=== PATIENT | female | born 1945 | race Caucasian/White ===

== ENCOUNTER → 2022-04-05 | Outpatient (REF) | payer MEDICARE, SELFPAY ==
[2022-04-05 07:41] LABS: ALB/GLOB Ratio 0.8 RATIO (0.9-2.4); AST(SGOT) 17 U/L (15-37); Alanine Aminotransfer ALT/SGPT 14 U/L (13-56); Albumin, Serum 2.9 g/dL (3.2-5.0); Alkaline Phosphatase 49 U/L (45-117); Anion Gap 5 (5-15); BUN 25 mg/dL (7-18); BUN/Creat Ratio 44.6 RATIO (10-20); Calcium,Total 8.2 mg/dL (8.5-10.1); Chloride 111 mmol/L (98-107); Creatinine, Serum 0.56 mg/dL (0.55-1.02); EST Glomerular Filtration Rate 111 mL/min (>60); Est Glom Filt Rate - Afr Amer 134 mL/min (>60); Globulin 3.6 g/dL (2.2-4.2); Glucose 93 mg/dL (74-106); Potassium 3.7 mmol/L (3.5-5.1); Protein, Total 6.5 g/dL (6.4-8.2); Sodium Level 143 mmol/L (136-145)
[2022-04-05 08:50] LABS: Hematocrit 39.5 % (37-47); Hemoglobin 12.3 g/dL (12.0-15.0); Mean Corp Hgb Conc 31.1 g/dL (32-36); Mean Corpuscular Hgb 29.9 pg (27.0-32.0); Mean Corpuscular Volume 96.1 fL (81-99); Mean Platelet Vol. 11.5 fl (6.2-12.0); Platelet Count 288 K/mm3 (150-450); RBC Distribution Width CV 13.2 % (11.6-14.6); RBC Distribution Width SD 46.8 fl (35.1-43.9); Red Blood Count 4.11 M/mm3 (4.2-5.4); White Blood Count 6.2 K/mm3 (4.4-11.0)
== END ==
LOC: OLS.ACH 05:00
PROVIDERS: Visit Provider Internal Medicine
DX: I10 Essential (primary) hypertension (principal); I25.10 Atherosclerotic heart disease of native coronary artery without angina pectoris; I65.29 Occlusion and stenosis of unspecified carotid artery
CPT/HCPCS: 36415; 80053; 85027

== ENCOUNTER → 2022-05-24 | Outpatient (REF) | payer MEDICARE, SELFPAY | LOC: OLS.ACH 16:45 | PROVIDERS: Visit Provider Internal Medicine | DX: R05.9 Cough, unspecified (principal); R09.81 Nasal congestion ==

== ENCOUNTER → 2022-07-20 | Outpatient (REF) | payer MEDICARE, SELFPAY ==
[2022-07-20 08:23] LABS: Hematocrit 37.1 % (37-47); Hemoglobin 11.8 g/dL (12.0-15.0); Mean Corp Hgb Conc 31.8 g/dL (32-36); Mean Corpuscular Hgb 29.2 pg (27.0-32.0); Mean Corpuscular Volume 91.8 fL (81-99); Mean Platelet Vol. 10.4 fl (6.2-12.0); Platelet Count 322 K/mm3 (150-450); RBC Distribution Width CV 13.9 % (11.6-14.6); RBC Distribution Width SD 47.3 fl (35.1-43.9); Red Blood Count 4.04 M/mm3 (4.2-5.4)
== END ==
LOC: OLS.ACH 05:00
PROVIDERS: Visit Provider Internal Medicine
DX: I10 Essential (primary) hypertension (principal); R59.9 Enlarged lymph nodes, unspecified
CPT/HCPCS: 36415; 85027

== ENCOUNTER → 2022-08-02 | Outpatient (REF) | payer MEDICARE, SELFPAY ==
[2022-08-02 17:00] LABS: Bacteria 0 SEEN /hpf (None Seen); Mucous, Urine 0 SEEN /hpf (<or=2+); Red Blood Cells-Urine 0 SEEN /hpf (0-5); Squamous Epithelial Cells - UA 0 SEEN /hpf (5-10)
[2022-08-02 17:15] LABS: Color, Urine Yellow (Yellow); Glucose, Dipstick Normal (Normal); Ketone-Dipstick Negative (Negative); Leukocyte Esterase-Dipstick 25 /ul (Negative); Nitrite-Dipstick Negative (Negative); Occult Blood-Urine Negative /ul (Negative); Protein-Dipstick Negative (Negative); Specific Gravity, Urine 1.015 (1.002-1.030); Urine Bilirubin Dipstick Negative (Negative); Urine Clarity Clear (Clear); Urine Urobilinogen Normal (Normal); Urine pH 6.5 (5.0 - 8.0)
[2022-08-02 17:27] LABS: White Blood Cells 0-5 SEEN /hpf (0-5)
== END ==
LOC: OLS.ACH 16:00
PROVIDERS: Referring Provider Internal Medicine; Visit Provider Internal Medicine
DX: R10.30 Lower abdominal pain, unspecified (principal)
CPT/HCPCS: 81001; 87086; 87088

== ENCOUNTER → 2022-08-05 | Outpatient (REF) | payer MEDICARE, SELFPAY ==
[2022-08-05 08:22] LABS: Hematocrit 34.9 % (37-47); Hemoglobin 10.9 g/dL (12.0-15.0); Mean Corp Hgb Conc 31.2 g/dL (32-36); Mean Corpuscular Hgb 29.4 pg (27.0-32.0); Mean Corpuscular Volume 94.1 fL (81-99); Mean Platelet Vol. 10.7 fl (6.2-12.0); Platelet Count 275 K/mm3 (150-450); RBC Distribution Width CV 14.3 % (11.6-14.6); Red Blood Count 3.71 M/mm3 (4.2-5.4); White Blood Count 5.6 K/mm3 (4.4-11.0)
[2022-08-05 08:50] LABS: ALB/GLOB Ratio 0.7 RATIO (0.9-2.4); AST(SGOT) 30 U/L (15-37); Alanine Aminotransfer ALT/SGPT 18 U/L (13-56); Albumin, Serum 2.8 g/dL (3.2-5.0); Alkaline Phosphatase 46 U/L (45-117); Anion Gap 7 (5-15); BUN 18 mg/dL (7-18); BUN/Creat Ratio 38.1 RATIO (10-20); Calcium,Total 8.4 mg/dL (8.5-10.1); Chloride 113 mmol/L (98-107); Creatinine, Serum 0.47 mg/dL (0.55-1.02); EST Glomerular Filtration Rate 135 mL/min (>60); Est Glom Filt Rate - Afr Amer 163 mL/min (>60); Globulin 3.9 g/dL (2.2-4.2); Glucose 98 mg/dL (74-106); Potassium 3.5 mmol/L (3.5-5.1); Protein, Total 6.7 g/dL (6.4-8.2); Sodium Level 143 mmol/L (136-145)
== END ==
LOC: OLS.ACH 05:00
PROVIDERS: Visit Provider Internal Medicine
DX: I25.10 Atherosclerotic heart disease of native coronary artery without angina pectoris (principal)
CPT/HCPCS: 36415; 80053; 85027

== ENCOUNTER → 2022-12-15 | Outpatient (REF) | payer MEDICARE, SELFPAY ==
[2022-12-16 09:10] LABS: Red Blood Cells-Urine 0 SEEN /hpf (0-5)
[2022-12-16 09:42] LABS: Color, Urine Yellow (Yellow); Glucose, Dipstick Normal (Normal); Ketone-Dipstick Negative (Negative); Leukocyte Esterase-Dipstick 500 /ul (Negative); Nitrite-Dipstick Negative (Negative); Occult Blood-Urine 10 /ul (Negative); Protein-Dipstick 15 mg/dl (Negative); Urine Bilirubin Dipstick Negative (Negative); Urine Clarity Sl. Cloudy (Clear); Urine Urobilinogen Normal (Normal)
[2022-12-16 09:52] LABS: Bacteria RARE /hpf (None Seen); Calcium Oxalate Crystals Ur RARE /hpf (<or=2+); Mucous, Urine 2+ /hpf (<or=2+); Squamous Epithelial Cells - UA 0-5 SEEN /hpf (5-10); White Blood Cells 5-10 SEEN /hpf (0-5)
== END ==
LOC: OLS.ACH 09:10
PROVIDERS: Visit Provider Internal Medicine
DX: F01.53 Vascular dementia, unspecified severity, with mood disturbance (principal); Z91.81 History of falling; Z79.899 Other long term (current) drug therapy
CPT/HCPCS: 81001; 87086

== ENCOUNTER → 2023-01-17 | Outpatient (REF) | payer MEDICARE, SELFPAY ==
[2023-01-17 07:58] LABS: Hemoglobin 12.3 g/dL (12.0-15.0); Mean Corp Hgb Conc 32.4 g/dL (32-36); Mean Corpuscular Hgb 30.3 pg (27.0-32.0); Mean Corpuscular Volume 93.6 fL (81-99); Mean Platelet Vol. 10.5 fl (6.2-12.0); Platelet Count 301 K/mm3 (150-450); RBC Distribution Width CV 14.2 % (11.6-14.6); RBC Distribution Width SD 49.3 fl (35.1-43.9); Red Blood Count 4.06 M/mm3 (4.2-5.4); White Blood Count 6.2 K/mm3 (4.4-11.0)
[2023-01-17 08:22] LABS: ALB/GLOB Ratio 0.8 RATIO (0.9-2.4); AST(SGOT) 33 U/L (15-37); Alanine Aminotransfer ALT/SGPT 23 U/L (13-56); Alkaline Phosphatase 56 U/L (45-117); Anion Gap 7 (5-15); BUN 23 mg/dL (7-18); BUN/Creat Ratio 36.7 RATIO (10-20); Calcium,Total 8.4 mg/dL (8.5-10.1); Chloride 108 mmol/L (98-107); Creatinine, Serum 0.63 mg/dL (0.55-1.02); EST Glomerular Filtration Rate 98 mL/min (>60); Est Glom Filt Rate - Afr Amer 118 mL/min (>60); Glucose 98 mg/dL (74-106); Potassium 3.7 mmol/L (3.5-5.1); Sodium Level 141 mmol/L (136-145)
== END ==
LOC: OLS.ACH 05:00
PROVIDERS: Visit Provider Internal Medicine
DX: M25.552 Pain in left hip (principal)
CPT/HCPCS: 36415; 80053; 85027

== ENCOUNTER → 2023-02-03 | Outpatient (REF) | payer MEDICARE, SELFPAY ==
[2023-02-03 08:18] LABS: Hematocrit 37.4 % (37-47); Hemoglobin 11.6 g/dL (12.0-15.0); Mean Corpuscular Hgb 29.1 pg (27.0-32.0); Mean Platelet Vol. 10.8 fl (6.2-12.0); Platelet Count 372 K/mm3 (150-450); RBC Distribution Width CV 14.1 % (11.6-14.6); RBC Distribution Width SD 48.6 fl (35.1-43.9); Red Blood Count 3.98 M/mm3 (4.2-5.4)
[2023-02-03 09:11] LABS: ALB/GLOB Ratio 0.7 RATIO (0.9-2.4); AST(SGOT) 27 U/L (15-37); Alanine Aminotransfer ALT/SGPT 18 U/L (13-56); Albumin, Serum 2.7 g/dL (3.2-5.0); Alkaline Phosphatase 52 U/L (45-117); Anion Gap 4 (5-15); BUN 15 mg/dL (7-18); BUN/Creat Ratio 26.3 RATIO (10-20); Calcium,Total 8.5 mg/dL (8.5-10.1); Chloride 112 mmol/L (98-107); Creatinine, Serum 0.57 mg/dL (0.55-1.02); EST Glomerular Filtration Rate 109 mL/min (>60); Est Glom Filt Rate - Afr Amer 131 mL/min (>60); Globulin 3.9 g/dL (2.2-4.2); Glucose 89 mg/dL (74-106); Potassium 3.7 mmol/L (3.5-5.1); Protein, Total 6.6 g/dL (6.4-8.2); Sodium Level 142 mmol/L (136-145)
== END ==
LOC: OLS.ACH 05:00
PROVIDERS: Visit Provider Internal Medicine
DX: U07.1 COVID-19 (principal)
CPT/HCPCS: 36415; 80053; 85027

== ENCOUNTER → 2023-03-07 | Outpatient (REF) | payer MEDICARE, SELFPAY ==
--- OUTSIDE RECORDS SUMMARY | 2023-03-07 05:00 | XMS RPT_ITS | CCD ---
Author Name Unknown Address [address] [place] [address] Organization [facility] Care Team Providers Care Satellite Dish Technician Name Role Phone Kahlil Chapin Unavailable Unavailable KromalicJordy Unavailable Unavailable KrJordy serrano Unavailable Unavailable Jordy Palmer Referring Unavailable Jordy Palmer Primary Care Unavailable JORDY PALMER Referring Unavailab le KromalicJordy Unavailable Unavailable Ajith Sy Unavailable Unavaila ble Jordy Palmer Unavailable Unavailable Amado Johnson Unavailable Unavailable Jordy Palmer Unavailable Unavailable Amado Johnson Unavailable Unavailable Jordy Palmer Unavailable Unavailable Unavailable Krzach, Dr. Jordy Becker Referring Unava ilable Kromalic, Dr. Jordy Becker Attending Unava ilable Kromalic, Dr. Jordy Becker Primary Care Unava ilable Kromalic, Dr. Jordy Becker Primary Care Unava ilable Kromalic, Dr. Jordy Becker Referring Unava ilable Kromalic, Dr. Jordy Becker Attending Unava ilable BALBIR MORALES Referring Unavailable NESHEIM, WON Attending Unavailable JACKY ROSENBERG Attending Unavailable JACKY ROSENBERG Admitting Unavailable SCHECHRISTINE SALVADOR Consulting Unavailable TORRES KEEN Consulting Unavailable NESHEIM, WON Referring Unavailable BALBIR MORALES Referring Unavailable Allergies Allergy Classification Reported Allergen(s) Allergy Type Date of Onset Reaction(s) Facility (20 sources) fentaNYL; Translations: [FENTANYL] Drug Allergy 7 [facility] Repository (2 sources) Iodine; Translations: [IODINE] Drug Allergy 7 [facility] Repository (2 sources) Morphine; Translations: [MORPHINE] Drug Allergy 7 [facility] Repository (2 sources) Nitrofurantoin; Translations: [NITROFURANTOIN] Drug Allergy 7 [facility] Repository (20 sources) Penicillins; Translations: [PENICILLINS] Propensity to adverse reactions (disorder) 7 Hives [facility] Repository (2 sources) NITROIMIDAZOLES; Translations: [NITROIMIDAZOLES] Propensity to adverse reactions (disorder) 7 [facility] Repository (18 sources) Ciprofloxacin; Translations: [Cipro TABS] Drug Allergy Rash [facility] Work Phone: (18 sources) metroNIDAZOLE; Translations: [metronidazole] Drug Allergy [facility] Work Phone: (18 sources) Nitrofurantoin; Translations: [Macrodantin CAPS] Drug Allergy [facility] Work Phone: (18 sources) Sulfonamides (Antibiotic); Translations: [Sulfa Drugs] Allergy to drug (finding) Rash [facility] Work Phone: (18 sources) Omnipaque SOLN; Translations: [Omnipaque SOLN] Allergy to drug (finding) Other [facility] Work Phone: Medications Completed/Discontinued Medications Medication Drug Class(es) Dates Sig (Normalized) Sig (Original) ascorbic acid 60 mg / beta carotene 5000 unt / copper sulfate 40 mg / dl-alpha tocopheryl acetate 30 unt / sodium selenite 0.04 mg / zinc oxide 40 mg oral tablet (4 sources) Vitamin C take 1 tablet by mouth once daily Centrum Silver Oral Tablet TAKE 1 TABLET DAILY. Refills: 0 Active aspirin 81 mg oral tablet (18 sources) Platelet Aggregation Inhibitor, Nonsteroidal Anti-inflammatory Drug Aspirin 81 MG TABS TAKE 1 TABLET DAILY. Quantity: 0 Refills: 0 Ordered: 03-May-2019 DO Active atenolol 25 mg oral tablet (18 sources) beta-Adrenergic Kate Start: 05-10-2012 take 1 tablet by mouth once daily Atenolol 25 MG Oral Tablet TAKE 1 TABLET BY MOUTH EVERY DAY Quantity: 90 Refills: 3 Ordered: 28-May-2021 Jordy Palmer DO Start : 10-May-2012 Active Centrum Silver Oral Tablet (1 source) take 1 tablet by mouth once daily Centrum Silver Oral Tablet TAKE 1 TABLET DAILY. Refills: 0 Active Centrum Silver Oral Tablet (5 sources) End: 08-17-2021 take 1 tablet by mouth once daily Centrum Silver Oral Tablet TAKE 1 TABLET DAILY. Quantity: 0 Refills: 0 Ordered: 17-Aug-2021 DO End : 17-Aug-2021 Complete Problems Active Problems Problem Classification Problem Date Documented Da te Episodic/Chronic Abdominal hernia (18 sources) Unspecified abdominal hernia without obstruction or gangrene; Translations: [Hernia] Episodic Abdominal pain (20 sources) Left lower quadrant pain; Translations: [Right flank pain] Episodic Acquired foot deformities (18 sources) Bunion; Translations: [Bunion] Episodic Acute bronchitis (18 sources) Acute bronchitis; Translations: [Acute bronchitis] Episodic Past or Other Problems Problem Classification Problem Date Documented Date Episodic/Chronic Diverticulosis and diverticulitis (5 sources) Diverticulitis of intestine; Translations: [Diverticulitis of intestine, part unspecified, without perforation or abscess without bleeding] Residual codes; unclassified (3 sources) Requires vaccination; Translations: [Need for vaccination] Unclassified (1 source) screening mamm Onset: 06-06-2018 Unclassified (15 sources) Patient encounter status; Translations: [Encounter for screening mammogram for breast cancer] Unclassified (5 sources) History of operative procedure on foot; Translations: [History of History of bunionectomy of left great toe] Unclassified (2 sources) Vaccination needed; Translations: [Need for vaccination] Unclassified (1 source) Vascular dementia, unspecified severity, with agitation; Translations: [Vascular dementia, unspecified severity, with agitation] Onset: 03-08-2022 NEGATED: Highlighted row has not occurred!Residual codes; unclassified (20 sources) Disease Episodic Results Test Name Value Interpretation Reference Range Facil ity Vital Signs Date Time Vital Sign Value Performing Clinician Faci lity 12-17-2021 15:42-0400 Body height 153.67 cm Jordy Palmer Work Phone: [facility] Work Phone: 12-17-2021 15:42-0400 Body mass index (BMI) [Ratio] 24.2 kg/m2 Jordy Palmer Work Phone: [facility] Work Phone: 12-17-2021 15:42-0400 Body surface area Derived from formula 1.54 m2 Jordy Palmer Work Phone: [facility] Work Phone: 12-17-2021 15:42-0400 Body temperature 97.3 [degF] Jordy Palmer Work Phone: [facility] Work Phone: 12-17-2021 15:42-0400 Body weight 57.15 kg Jordy Palmer Work Phone: [facility] Work Phone: 12-17-2021 15:42-0400 Diastolic blood pressure 80 mm[Hg] Jordy Palmre Work Phone: [facility] Work Phone: 12-17-2021 15:42-0400 Heart rate 60 /min Jordy Palmer Work Phone: [facility] Work Phone: 12-17-2021 15:42-0400 SaO2% (BldA) [Mass fraction] 97 % Jordy Palmer Work Phone: [facility] Work Phone: 12-17-2021 15:42-0400 Systolic blood pressure 138 mm[Hg] Jordy Palmer Work Phone: [facility] Work Phone: 08-17-2021 11:43-0400 Diastolic blood pressure 82 mm[Hg] Jordy Palmer Work Phone: [facility] Work Phone: 08-17-2021 11:43-0400 Systolic blood pressure 135 mm[Hg] Jordy Palmer Work Phone: [facility] Work Phone: 08-17-2021 10:56-0400 Body height 153.67 cm Jordy Palmer Work Phone: [facility] Work Phone: 08-17-2021 10:56-0400 Body mass index (BMI) [Ratio] 23.05 kg/m2 Jordy Palmer Work Phone: [facility] Work Phone: 08-17-2021 10:56-0400 Body surface area Derived from formula 1.51 m2 Jordy Palmer Work Phone: [facility] Work Phone: 08-17-2021 10:56-0400 Body temperature 97.3 [degF] Jordy Palmer Work Phone: [facility] Work Phone: 08-17-2021 10:56-0400 Body weight 54.43 kg Jordy Palmer Work Phone: [facility] Work Phone: 08-17-2021 10:56-0400 Diastolic blood pressure 80 mm[Hg] Jordy Palmer Work Phone: [facility] Work Phone: 08-17-2021 10:56-0400 Heart rate 60 /min Jordy Mendozaomalic Work Phone: [facility] Work Phone: 08-17-2021 10:56-0400 SaO2% (BldA) [Mass fraction] 98 % Jordy Mendozaomalic Work Phone: [facility] Work Phone: 08-17-2021 10:56-0400 Systolic blood pressure 124 mm[Hg] Jordy Mendozaomalic Work Phone: [facility] Work Phone: 07-27-2019 11:32-0400 BMI (Body Mass Index) 27.59 kg/m2 Jordy Mendozaomalic [facility] Work Phone: 07-27-2019 11:32-0400 Body Temperature 98.2 [degF] Jordy Palmer [facility] Work Phone: 07-27-2019 11:32-0400 Body weight 66.23 kg Jordy Mendozaomalic [facility] Work Phone: 07-27-2019 11:32-0400 BP Diastolic 76 mm[Hg] Jordy Mendozaomalic [facility] Work Phone: 07-27-2019 11:32-0400 BP Systolic 148 mm[Hg] Jordy Mendozaomalic [facility] Work Phone: 07-27-2019 11:32-0400 BSA (Body Surface Area) 1.65 m2 Jordy Mendozaomalic [facility] Work Phone: 07-27-2019 11:32-0400 Pulse (Heart Rate) 60 /min Jordy Dunhamanushka [facility] Work Phone: Encounters Encounter Date Encounter Type Care Provider Facility Start: 03-08-2022 End: 03-09-2022 Emergency department patient visit WON REINA [facility] Start: 03-03-2022 End: 03-04-2022 Emergency department patient visit BALBIR MORALES [facility] Start: 03-03-2022 End: 03-05-2022 ambulatory JACKY ROSENBERG [facility] Start: 01-11-2022 Rx Renewal Jordy askew Work Phone: [facility] Work Phone: Start: 12-17-2021 Office outpatient vi sit 25 minutes Jordy Palmer Work Phone: [facility] Work Phone: Start: 12-17-2021 Patient encounter procedure Jordy Palmer Work Phone: [facility] Work Phone: Start: 12-17-[address] Jordy Palmer Facility:[id number] Start: 10-19-2021 Rx Renewal Jordy askew Work Phone: -[facility] Work Phone: Start: 10-05-2021 Chart Update Jordy askew Work Phone: [facility] Work Phone: Start: 10-02-2021 Chart Update Jordy askew Work Phone: [facility] Work Phone: Start: 09-11-2021 Rx Renewal Jordy askew Work Phone: [facility] Work Phone: Start: 08-17-2021 Office outpatient vi sit 25 minutes Jordy Palmer Work Phone: [facility] Work Phone: Start: 08-17-[address] Jordy Palmer Facility:[id number] Start: 05-28-2021 Rx Renewal Jordy Askew Kallie askew Work Phone: [facility] Work Phone: Start: 05-23-2021 Rx Renewal Jordy Askew Kallie askew Work Phone: [facility] Work Phone: Start: 04-06-2021 Rx Renewal Jordy Askew Kallie askew Work Phone: [facility] Work Phone: Start: 02-24-2021 AUDIT Jordy askew Work Phone: [facility] Work Phone: Start: 05-06-2020 Patient encounter procedure Jordy Palmer [facility] Work Phone: Start: 07-27-2019 Patient encounter procedure Jordy Mendozaomalic [facility] Work Phone: Start: 05-03-2019 Patient encounter procedure Jordy Mendozaomalic [facility] Work Phone: Start: 03-26-2019 Patient encounter procedure Jordy Mendozaomalic [facility] Work Phone: Start: 12-15-2018 Patient encounter procedure Jordy Mendozaomalic [facility] Work Phone: Start: 10-17-2018 Patient encounter procedure Jordy Mendozaomalic [facility] Work Phone: Start: 07-31-2018 Patient encounter procedure Jordy Kromalic [facility] Work Phone: Start: 07-17-2018 [facility] Work [facility]: Start: 06-06-2018 End: 06-06-2018 Patient encounter procedure Jordy Palmer Facility:[facility] Start: 02-06-2018 Patient encounter [facility] Work Phone: Start: 09-21-2016 Ambulatory Kahlil Chapin [facility] Patient encounter status Jordy Askew Shannan [facility] Work Phone: Procedures Date Procedure Procedure Detail Performing Clinician Appendectomy Jordy Palmer Cholecystectomy Jordy askew History of Foot Surgery Left Jordy Palmer History of Gallbladder Surgery Jordy Palmer History of Partial Colectomy - Sigmoid Jordy Palmer History of Simple Bu nion Exostectomy (Silver Procedure) Jordy Palmer Total abdominal hyst erectomy with bilateral salpingo-oophorectomy Jordy Palmer Plan of Treatment Date Care Activity Detail Author Start: 03-19-2021 FUV, Provider: Jordy Palmer, Status: Pen, Time: 9:40 AM FUV, Provider: Jordy Palmer, Status: Pen, Time: 9:40 AM [facility] Work Phone: Immunizations Immunization Date Immunization Notes Care Provider Fa cary 08-02-2020 Moderna COVID-19 Vac cine 100 MCG/0.5ML Intramuscular Suspension Jordy Palmer Work Phone: [facility] Work Phone: 07-25-2020 Moderna COVID-19 Vac cine 100 MCG/0.5ML Intramuscular Suspension Jordy Palmer Work Phone: [facility] Work Phone: 07-04-2020 Moderna COVID-19 Vac cine 100 MCG/0.5ML Intramuscular Suspension Jordy Mendozazach Work Phone: [facility] Work Phone: 12-25-2019 Fluad Quadrivalent 0 .5 ML Intramuscular Prefilled Syringe Jordy Mendozazach Work Phone: [facility] Work Phone: 12-15-2018 influenza, injectabl e, quadrivalent, preservative free; Translations: [Fluarix Quadrivalent 0.5 ML Intramuscular Suspension Prefilled Syringe] Jordy Palmer [facility] Work Phone: Payers Date Payer Category Payer Unknown [id number] 1945 Unknown [id number] 1945 Unknown [id number] 1945 Unknown [id number] Unknown Social History Date Type Detail Facility Retired From Work Retired From Work [facility] Work Phone: NEGATED: Highlighted row - - [facility] Work Phone: Functional Status Date Assessment Result Facility NEGATED: Highlighted row Functional performance Functional status health issues are not documented Disease [facility] Work Phone: Mental Status Date Assessment Result Facility NEGATED: Highlighted row Cognitive function [Interpretation] Cognitive status health issues are not documented Disease [facility] Work Phone: Discharge summary note 03-05-2022 Note Date & Type Note Facility 03-05-2022 Note Discharge Summary Sabina Quarles : 1945 ADMIT DATE: 03/03/2022 DISCHARGE DATE: 03/05/2022 PRIMARY CARE PHYSICIAN: Jordy Palmer VISIT STATUS: Observation CODE STATUS: Full Code DISCHARGE DIAGNOSES: Principal Problem: Unable to ambulate Active Problems: Physical debility HLD/HTN/CAD Left Hip Pointer HOSPITAL COURSE: Patient presented for acute fall striking left hip, patient with significant pain/immobility, determined not to be fractured, patient with continued pain 2/2 hip pointer uanble to safely care for self at home and required placement to SNF for Rehab Discharge to [facility] for rehab in improved/stable condition SIGNIFICANT DIAGNOSTIC STUDIES: CT head w/o iv contrast no acute process XR chest no acute process CT pelvis w/o IV contrast, no acute fracture CT cervical spine no acute process or compression fractur CONSULTANTS: PT/OT, Psychiatry, CM/SW RECOMMENDED NEXT STEPS: Discharge to SNF for physical rehabilitation follow up with home pt, and guided strength training to reduce fall risk. DISCHARGE MEDICATIONS: Medication List You have not been prescribed any medications. DIET: Adult diet Regular ACTIVITY: No heavy lifting. COMPLEXITY OF FOLLOW UP: [x] Moderate Complexity: follow up within 7-14 calendar days (65594) [] Severe Complexity: follow up within 7 calendar days (75030) FOLLOW UP TESTING, PENDING RESULTS OR REFERRALS AT TRANSITIONAL CARE VISIT: [] Yes [x] No PENDING STUDIES: none DISPOSITION: Skilled Facility FACILITY/HOME CARE AGENCY NAME: [place] Follow up with No follow-up provider specified. PCP INSTRUCTIONS TO MA/SW: Please call patient on day after discharge (must document patient contacted within 2 business days of discharge). FOLLOW UP QUESTIONS FOR MA/SW: 1. Did you get medications filled and taking them as instructed from discharge? 2. Are you following your discharge instructions from your hospital stay? 3. Please confirm patient is scheduled for a follow up appointment within the above time frame. DISCHARGE TIME: > 30 minutes SIGNED: Jacky Rosenberg MD 03/05/2022, 12:43 PM [facility] Clinical Note 03-05-2022 Note Date & Type Note Facility 03-05-2022 Note Hospitalist Progress Note 03/05/2022 Subjective: Admit Date: 03/03/2022 PCP: Jordy Palmer DO Room#: 02/28 Interval History: No overnight issues. Chest pain improved. Patient evaluated by PT/OT plan for placement to [facility] SNF, pending final approval from facility, referral sent, insurance waived auth, family and patient amenable Left hip pain tolerable persistent Denies, sob, abdominal pain, nausea, vomiting, diarrhea, constipation, fevers, or chills. Adult diet Regular 24HR INTAKE/OUTPUT: No intake or output data in the 24 hours ending 03/05/22442 Past Medical History: Past Medical History: Diagnosis Date CAD (coronary artery disease) Carotid artery stenosis Mild B/L 2012 Doppler Hyperlipidemia Hypertension Presence of stent in coronary artery 2000-> BMS to LAD, 2006-> BMS to RCA LABS: CBC: Recent Labs 03/03/22 1740 WBC 12.4* RBC 5.14 HGB 15.0 HCT 45.8 MCV 89.2 RDW 13.2 PLT 392 BMP: Recent Labs 03/03/22 1740 NA 145 K 3.8 CL 108* CO2 22 BUN 41* CREATININE 0.46* GLUCOSE 136* CALCIUM 9.4 ANIONGAP 15* LIVER PROFILE:No results for input(s): AST, ALT, BILITOT, ALKPHOS, PROT in the last 72 hours. No lab exists for component: LABALBU PT/INR: No results for input(s): PROTIME, INR in the last 72 hours. CARDIAC ENZYMES: Recent Labs 03/03/22 1740 TROPONINI 0.027 Procalcitonin: No results found for: PROCAL COVID-19 PCR: No results for input(s): COVID19 in the last 72 hours. Objective: Vitals: BP (!) 154/73 Pulse 67 Temp 37 ?C (98.6 ?F) (Oral) Resp 18 Ht 5' 2 (1.575 m) Wt 125 lb (56.7 kg) SpO2 96% BMI 22.86 kg/m? Pulse Ox: SpO2 Av.1 % Min: 95 % Max: 100 % Supplemental O2: General appearance: No apparent distress, appears stated age, mild sedation, reports continued but slowly improving pain to left hip, tenderness over left upper leg HEENT: Normal cephalic, atraumatic without obvious deformity. Pupils equal, round, and reactive to light. Extra ocular muscles intact. Conjunctivae/corneas clear. Neck: Supple, with full range of motion. No jugular venous distention. Trachea midline. No lymphadenopathy. Respiratory: Normal respiratory effort. Clear to auscultation, bilaterally without Rales/Wheezes/Rhonchi. Cardiovascular: Regular rate and rhythm with normal S1/S2 without murmurs, rubs or gallops. Abdomen: Soft, non-tender, non-distended with normal bowel sounds. No rebound or guarding. Musculoskeletal: No clubbing, cyanosis or edema bilaterally. Full range of motion without deformity, +2 peripheral pulses in all extremities. Skin: Skin color, texture, turgor normal. No rashes or lesions. Neurologic: Neurovascularly intact without any focal sensory/motor deficits. Cranial nerves: II-XII intact, grossly non-focal. Medications: Current Facility-Administered Medications: acetaminophen (Tylenol) tablet 650 mg, 650 mg, Oral, q6h PRN OR acetaminophen (Tylenol) suppository 650 mg, 650 mg, Rectal, q6h PRN, Alan Villegas MD amLODIPine (Norvasc) tablet 5 mg, 5 mg, Oral, Daily, Jacky Rosenberg MD, 5 mg at 03/04/22 1309 aspirin EC tablet 81 mg, 81 mg, Oral, Daily, Alan Villegas MD, 81 mg at 03/04/22 1006 atenolol (Tenormin) tablet 25 mg, 25 mg, Oral, Daily, Alan Villegas MD, 25 mg at 03/04/22 1007 enoxaparin (Lovenox) syringe 40 mg, 40 mg, SubCUTAneous, Daily, Alan Villegas MD, 40 mg at 03/04/22 1007 ondansetron ODT (Zofran-ODT) disintegrating tablet 4 mg, 4 mg, Oral, q8h PRN OR ondansetron (Zofran) injection 4 mg, 4 mg, IntraVENous, q6h PRN, Alan Villegas MD oxyCODONE (Roxicodone) immediate release tablet 5 mg, 5 mg, Oral, q6h PRN, Alan Villegas MD, 5 mg at 03/04/22 1309 polyethylene glycol (PEG) 3350 (Miralax) packet 17 g, 17 g, Oral, Daily PRN, Alan Villegas MD sennosides (Senokot) tablet 8.6 mg, 1 tablet, Oral, Nightly, Alan Villegas MD No current outpatient medications on file. Assessment Geriatric fall w/o hip fracture Physical debility 2/2 hip blunt force trauma Diminishing ADL and failure to thrive following passing of of 48 years Reactive depression/Adjustment Disorder Chronic Medical Problems as above Plan Home meds as ordered -PT/OT eval supportive of placement today Case management consulted -Referral sent and accepted to 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 Jacky Rosenberg MD Division of Hospitalist Medicine Inpatient Medical Services/[facility] Clinical Note 03-04-2022 Note Date & Type Note Facility 03-04-2022 Note S/W, patient ED bedd ed Referral sent to [facility] via [facility]. I did also call admissions at [facility], they did confirm patient Son has been in contact for an admission to their facility. Therapy Evals are pending. Patient is [employer], insurance is waiving auth but will need therapy input for acceptance. Once evals complete I will send to [facility] for review. [facility] Clinical Note 03-04-2022 Note Date & Type Note Facility 03-04-2022 Note Hospitalist Progress Note 03/04/2022 Subjective: Admit Date: 03/03/2022 PCP: Jordy Palmer DO Room#: 02/28 Interval History: No overnight issues. Chest pain improved. Patient notes continued left hip pain and inability to ambulate independently, Patient has reactive depression due to passing last year of and recent passing of close friend. Diminishing ADL and ability to care for self, has been discussing with son transition to a facility or assisted living. PT/OT consult, case management for placement coordination/discharge planning Denies, sob, abdominal pain, nausea, vomiting, diarrhea, constipation, fevers, or chills. Adult diet Regular 24HR INTAKE/OUTPUT: No intake or output data in the 24 hours ending 03/04/22 0720 Past Medical History: Past Medical History: Diagnosis Date CAD (coronary artery disease) Carotid artery stenosis Mild B/L 2012 Doppler Hyperlipidemia Hypertension Presence of stent in coronary artery 2000-> BMS to LAD, 2006-> BMS to RCA LABS: CBC: Recent Labs 03/03/22 1740 WBC 12.4* RBC 5.14 HGB 15.0 HCT 45.8 MCV 89.2 RDW 13.2 PLT 392 BMP: Recent Labs 03/03/22 1740 NA 145 K 3.8 CL 108* CO2 22 BUN 41* CREATININE 0.46* GLUCOSE 136* CALCIUM 9.4 ANIONGAP 15* LIVER PROFILE:No results for input(s): AST, ALT, BILITOT, ALKPHOS, PROT in the last 72 hours. No lab exists for component: LABALBU PT/INR: No results for input(s): PROTIME, INR in the last 72 hours. CARDIAC ENZYMES: Recent Labs 03/03/22 1740 TROPONINI 0.027 Procalcitonin: No results found for: PROCAL COVID-19 PCR: No results for input(s): COVID19 in the last 72 hours. Objective: Vitals: BP (!) 164/72 (BP Location: Right arm, Patient Position: Lying) Pulse 81 Temp 37 ?C (98.6 ?F) (Oral) Resp 17 Ht 5' 2 (1.575 m) Wt 125 lb (56.7 kg) SpO2 99% BMI 22.86 kg/m? Pulse Ox: SpO2 Av % Min: 97 % Max: 99 % Supplemental O2: General appearance: No apparent distress, appears stated age, mild sedation, reports continued but slowly improving pain to left hip, tenderness over left upper leg HEENT: Normal cephalic, atraumatic without obvious deformity. Pupils equal, round, and reactive to light. Extra ocular muscles intact. Conjunctivae/corneas clear. Neck: Supple, with full range of motion. No jugular venous distention. Trachea midline. No lymphadenopathy. Respiratory: Normal respiratory effort. Clear to auscultation, bilaterally without Rales/Wheezes/Rhonchi. Cardiovascular: Regular rate and rhythm with normal S1/S2 without murmurs, rubs or gallops. Abdomen: Soft, non-tender, non-distended with normal bowel sounds. No rebound or guarding. Musculoskeletal: No clubbing, cyanosis or edema bilaterally. Full range of motion without deformity, +2 peripheral pulses in all extremities. Skin: Skin color, texture, turgor normal. No rashes or lesions. Neurologic: Neurovascularly intact without any focal sensory/motor deficits. Cranial nerves: II-XII intact, grossly non-focal. Medications: Current Facility-Administered Medications: acetaminophen (Tylenol) tablet 650 mg, 650 mg, Oral, q6h PRN OR acetaminophen (Tylenol) suppository 650 mg, 650 mg, Rectal, q6h PRN, Alan Villegas MD aspirin EC tablet 81 mg, 81 mg, Oral, Daily, Alan Villegas MD atenolol (Tenormin) tablet 25 mg, 25 mg, Oral, Daily, Alan Villegas MD enoxaparin (Lovenox) syringe 40 mg, 40 mg, SubCUTAneous, Daily, Alan Villegas MD ondansetron ODT (Zofran-ODT) disintegrating tablet 4 mg, 4 mg, Oral, q8h PRN OR ondansetron (Zofran) injection 4 mg, 4 mg, IntraVENous, q6h PRN, Alan Villegas MD oxyCODONE (Roxicodone) immediate release tablet 5 mg, 5 mg, Oral, q6h PRN, Alan Villegas MD polyethylene glycol (PEG) 3350 (Miralax) packet 17 g, 17 g, Oral, Daily PRN, Alan Villegas MD No current outpatient medications on file. Assessment Geriatric fall w/o hip fracture Physical debility 2/2 hip blunt force trauma Diminishing ADL and failure to thrive following passing of of 48 years Reactive depression/Adjustment Disorder Chronic Medical Problems as above Plan -PT/OT eval for home therapy vs placement today Case management consulted -Referral sent and accepted to 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 Jacky Rosenberg MD Division of Hospitalist Medicine Inpatient Medical Services/[facility] Clinical Note 03-04-2022 Note Date & Type Note Facility 03-04-2022 Note [facility] : 1945 AGE 76 y.o. YEARS Note Date 03/03/2022 Primary Care Physician:Jordy Palmer DO Current Providers as of 03/03/2022 PCP: Jordy Palmer DO Referring Provider: not found, starting on TueMar 03, 2022 12:00 AM Admitting Provider: Alan Villegas MD, (Active) Attending Provider: Balbir Morales MD, starting on TueMar 03, 2022 5:19 PM (Active) Attending Provider: Alan Villegas MD, starting on TueMar 03, 2022 7:51 PM (Active) Perinatal Educator RES: Redd Mendoza MD, starting on TueMar 03, 2022 5:17 PM (Active) Registered Nurse: Eveline Irby RN, starting on TueMar 03, 2022 7:12 PM, ending on TueMar 03, 2022 10:34 PM (Inactive) Registered Nurse: Pamela Camacho RN, starting on TueMar 03, 2022 10:30 PM (Active) Chief Complaint: Fall and Hip Pain (left) HPI: She was brought in due to a fall and hip pain She lives alone and was down on the floor in her home for awhile after a fall about 2 days ago She fell quickly, she was weak but did not have any chest pain or sob or any lightheadedness or dizziness prior to the fall She denied any vision changes or speaking problem She denied any other joint pain outside her left hip She was for 47 years but now her She had pain on the left side of her hip, She does not have any fever sweats or chills She does get down or depressed at times She has not tried to hurt her self or thought about hurting herself recently Review of Systems: General: Skin: HEENT: Cardiovascular Fever n Rashes n Difficulty chewing n Chest Pain n Chills n Sores n Appetite Loss n Chest Pressure n Fatigue n Epistaxis n Orthopnea n Sweats n Hearing loss n Palpitations n GI: Tinnitus n GERD n Vision quality n RESP: Abdominal Pain n Glasses/Contacts n : SOB/DIAZ n Nausea n Loss taste/smell n Hematuria n Cough n Vomiting n Dysuria n Productive/Sputum n Hematemesis n NEURO: Urgency n Hemoptysis n Diarrhea n Headaches n Frequency Wheezing n Constipation n Seizures n Times at night urinating Heamatochezia n Neuropathy n catheter present MSK: Melena n Focal weakness n Hesitancy Focal Numbness n Incontinence Acute joint pain Only in left hip PSYCH: Dizzy/Vertigo n Redness n Depression Difficulty speaking n Heme/Lymph Swelling n Anxiety Difficulty walking n Lymphadenopathy Myalgia n Ataxia n Chronic joint pain n Past Medical History: Diagnosis Date CAD (coronary artery disease) Carotid artery stenosis Mild B/L 2013 Doppler Hyperlipidemia Hypertension Presence of stent in coronary artery 2000-> BMS to LAD, 2006-> BMS to RCA Past Surgical History: Procedure Laterality Date CARDIAC PROCEDURE CORONARY ANGIOPLASTY Allergies Allergen Reactions Ciprofloxacin Fentanyl Other Iodine Other Had upper chest flushing with contrast in the past, per patient has been avoided since. Metronidazole And Related Other Morphine Unknown Nitrofurantoin Other Nitrofurantoin Macrocrystal Statins Mental status changes myalgias Sulfa Antibiotics Hives Penicillins Rash Medications Prior to Admission: acetaminophen (TYLENOL) 325 mg tablet One every 6 hours as needed for pain 0 12/02/2016 Active aspirin, enteric coated (ASPIRIN, ENTERIC COATED) 81 mg EC tablet Take 81 mg by mouth once daily. 0 Active atenolol (TENORMIN) 25 mg tablet Take 25 mg by mouth once daily. 0 Active fenofibrate nanocrystallized (TRICOR) 145 mg tablet Take 145 mg by mouth twice daily. 0 Active latanoprost (XALATAN) 0.005 % ophthalmic solution 1 Drop daily at bedtime. 0 Active SACCHAROMYCES BOULARDII (PROBIOTIC, S.BOULARDII, ORAL) Take by mouth. 0 Active Social History Social History Tobacco Use Smoking status: Former Smokeless tobacco: Never Substance Use Topics Alcohol use: No Family History Family History Problem Relation Name Age of Onset Heart attack Father Physical Exam Temp (24hrs), Av.6 ?C (97.8 ?F), Min:36.6 ?C (97.8 ?F), Max:36.6 ?C (97.8 ?F) Body mass index is 22.86 kg/m?.BMI Classification: BP (!) 134/99 Pulse 87 Temp 36.6 ?C (97.8 ?F) (Oral) Resp 14 Wt 125 lb (56.7 kg) SpO2 98% Pulse Ox: SpO2 Av % Min: 98 % Max: 98 % Supplemental O2: General appearance: seen in the ed, resting in bed HEENT: Normal cephalic, atraumatic without obvious deformity. Pupils equal, round, and reactive to light. Extra ocular muscles intact. Conjunctivae/corneas clear. Neck: Supple, with full range of motion. No jugular venous distention. Trachea midline. No lymphadenopathy. Respiratory: Normal respiratory effort. Clear to auscultation, bilaterally without Rales/Wheezes/Rhonchi. Cardiovascular: Regular rate and rhythm with normal S1/S2 without murmurs, rubs or gallops. Abdomen: Soft, non-tender, non-distended with normal bowel sounds. No rebound or guarding. Musculoskeletal: Patient complai (more content not included)... [facility] Clinical Note 04-17-2020 Note Date & Type Note Facility 04-17-2020 Note Patient Outreach ([facility]) SABINA QUARLES ([id number]) 1945 F Date Time Provider Department 04/17/20 KIRAN SALDIVAR During your visit today, we recorded the following information about you: Allergies As of Date: 04/17/2020 Noted Allergy Reaction FENTANYL 12/01/2016 11 - Vomiting FLAGYL (NITROIMIDAZOLES) 12/01/2016 16 - Unknown IV CONTRAST (IODINE) 12/01/2016 14 - Other: See Comments Comments: Had upper chest flushing with contrast in the past, per patient has been avoided since. MACRODANTIN (NITROFURANTOIN) 12/01/2016 11 - Vomiting MORPHINE 12/01/2016 14 - Other: See Comments PENICILLINS 12/01/2016 2 - Rash Date Reviewed: 01/04/2017 Reviewed by: Fernando Luke - Fully Assessed Order(s):SARS-COVID VACCINE 1ST DOSE APPT [[id number]] Order #: [id number] FUTURE Prescriptions as of 04/17/2020 Sig: ASPIRIN 81 MG TABLET,DELAYED * Take 81 mg by mouth once josh* ATENOLOL 25 MG TABLET Take 25 mg by mouth once josh* FENOFIBRATE NANOCRYSTALLIZED * Take 145 mg by mouth twice da* LATANOPROST 0.005 % EYE DROPS 1 Drop daily at bedtime. PROBIOTIC (S.BOULARDII) ORAL Take by mouth. ACETAMINOPHEN 325 MG TABLET One every 6 hours as needed f* Problem List As Of Date 04/17/2020 Noted Resolved Acute appendicitis [K35.80] 12/01/2016 12/02/2016 Hyperlipidemia [E78.5] 12/02/2016 Hypertension [I10] 12/02/2016 Presence of stent in coronary artery [Z95.5] 12/02/2016 More... Atherosclerosis of coronary artery [I25.10] 12/02/2016 Stenosis of carotid artery [I65.29] 12/02/2016 Letter Text Encounter Status:Closed by [employer], PRODUSER on 04/21/20 [facility] History of Present illness Narrative Note Date & Type Note Facility History of Present illness Narrative The patient is being seen for the subsequent annual wellness visit.Past Medical, Surgical and Family History: reviewed and updated in chart.Medications and Supplements: Review of all medications by a prescribing practitioner or clinical pharmacist (such as prescriptions, OTCs, herbal therapies and supplements) documented in the medical record.No, the patient is not using opioids.Patient Self Assessment of Health Status: good.Tobacco use: Non-UserAlcohol use: Non-UserIllicit drug use: Non-UserCurrent diet: well balanced diet.Exercise Frequency: infrequently.Depression/Suicide Screening: Patient has a current diagnosis of depression .During the past 2 weeks, the patient has not felt down, depressed or hopeless.During the past 2 weeks, the patient has not felt little interest or pleasure in doing things.Hearing Impairment: none.Cognitive Impairment: Cognitive impairment was observed, patient or family reported cognitive impairment .Bathing: performs independently.Dressing: performs independently.Walking: performs independently.Managing Finances: performs independently.Shopping: performs independently.Managing Medications: performs independently.Housework / Basic Home Maintenance: performs independently.Falls Risk Screening:. SABINA has not fallen in the last 6 months.Home safety risk factors: none.Advance directives:. Patient has living will. Patient has healthcare POA.Recommend patient presents today has recently lost her . Patient has good family around her to help. States that sometimes she has been forgetting things.t. Writing things down. Now forgetting things. Patient is now forgetting things. Forgets appointments and things about nature. Taking care of her self well at home. She is not getting lost with driving notes or directions otherwise well.He has no difficulties otherwise no chest pain no shortness of breath no dizziness no lightheadedness. No abdominal pain or discomfort. No troubles with swelling of the legs or feet. No fever no chills no night sweats.The last health maintenance visit was 1 year(s) ago. Concerns raised today include: Patient reports arthritic pain in bilateral feet; she reports that she has been taking Tylenol. The patient's health since the last visit is described as good . Patient reports administering eyedrops daily due to conjunctivitis. There are no interval changes in the patient's PMH, PSH, and current medications. There are no interval changes in the patient's social and family history. She has regular dental visits. She complains of vision problems. Vision care includes having regular eye examinations. Immunizations status: not up to date.Lifestyle: She consumes a diverse and healthy diet. She has weight concerns. She does not exercise regularly. She does not use tobacco. She denies alcohol use. Patient reports that she eats out fairly often, but that she eats relatively healthy while out; she reports that the arthritic pain in her feet makes regular exercise difficult; she has gained weight recently as a result.Screening interval recommendation: Last on 01/04/2014.Breast cancer screening: cancer screening reviewed and current. Screening interval recommendation: Last on 05/30/2017. a colonoscopy was performed 03/19/2009.Metabolic screening: lipid profile performed 01/31/2018 and glucose screening performed 01/31/2018. [facility] Work Phone: History of Present illness Narrative Note Date & Type Note Facility History of Present illness Narrative miss .Hard to drive.Not motivated.Went to the bank. [facility] Work Phone: History of Present illness Narrative Note Date & Type Note Facility History of Present illness Narrative Patient presents with her son today. Here for follow-up. Patient still feeling somewhat down somewhat below.Patient went to the bank to do some business and ended up going to the wrong bank. The Rao was somewhat concerned and reached out to her son about the episode of possible confusion.The son and she felt it was a reasonable mistake she does have a counselor at all [employer].She has been very isolated since her is . He had been the social Coker for their friend [place].Without them she has been very isolated not meeting with a lot of people.Her son is suggested that she go to independent living where she would have people around her for stimulation. They have looked into the [facility].They have been very encouraged by things that can be offered.Reviewed her Mini-Mental status exam.She is had no troubles with headache or double vision. No sore throat no difficulty swallowing. She is had no thoughts of hurting her self. She does not drink alcohol.She has been depressed and is continued to have trouble with grief since the loss of her . It is been a year and a half. Miss .Hard to drive.Not motivated.Went to the bank. [facility] Work Phone: History of Present illness Narrative Note Date & Type Note Facility History of Present illness Narrative Patient presents with her son today. Here for follow-up. Patient still feeling somewhat down somewhat below.Patient went to the bank to do some business and ended up going to the wrong bank. The Rao was somewhat concerned and reached out to her son about the episode of possible confusion.The son and she felt it was a reasonable mistake she does have a counselor at all [employer].She has been very isolated since her is . He had been the social Coker for their friend [place].Without them she has been very isolated not meeting with a lot of people.Her son is suggested that she go to independent living where she would have people around her for stimulation. They have looked into the apostolic home.They have been very encouraged by things that can be offered.Reviewed her Mini-Mental status exam.She is had no troubles with headache or double vision. No sore throat no difficulty swallowing. She is had no thoughts of hurting her self. She does not drink alcohol.She has been depressed and is continued to have trouble with grief since the loss of her . It is been a year and a half. Miss .Hard to drive.Not motivated.Went to the [employer]. [facility] Work Phone: Summary Purpose Family History No Family History Records FoundUnknown Family Member Name Dates Details Family history of Heart Dise ase(V1.49) Comments:Family History Status:Active Mother Name Dates Details Family history of Heart Dise ase(V1.49) Status:Active Family history of Parkinson Disease Status:Active Family history of Absolute G laucoma Status:Active Family history of Uterine Ca ncer(V16.49) Status:Active Family history of Lung Cance r(V16.1) Status:Active Family history of Hypertensi on(V1.49) Status:Active Family history of Glaucoma(V 19.11) Status:Active Family history of Arthritis( V17.7) Status:Active Father Name Dates Details Family history of Heart Dise ase(V17.49) Status:Active Family history of Gastrointe stinal Disorder(V18.59) Status:Active Brother Name Dates Details Family history of Hypertensi on(V17.49) Status:Active Family history of Heart Dise ase(V17.49) Status:Active Family history of Multiple S clerosis Status:Active Unknown Family Member Name Dates Details Family history of Heart Dise ase(V1.49) Comments:Family History Status:Active Mother Name Dates Details Family history of Heart Dise ase(V17.49) Status:Active Family history of Parkinson Disease Status:Active Family history of Absolute G laucoma Status:Active Family history of Uterine Ca ncer(V16.49) Status:Active Family history of Lung Cance r(V16.1) Status:Active Family history of Hypertensi on(V17.49) Status:Active Family history of Glaucoma(V 19.11) Status:Active Family history of Arthritis( V17.7) Status:Active Father Name Dates Details Family history of Heart Dise ase(V17.49) Status:Active Family history of Gastrointe stinal Disorder(V18.59) Status:Active Brother Name Dates Details Family history of Hypertensi on(V17.49) Status:Active Family history of Heart Dise ase(V17.49) Status:Active Family history of Multiple S clerosis Status:Active Unknown Family Member Name Dates Details Family history of Heart Dise ase(V17.49) Comments:Family History Status:Active Mother Name Dates Details Family history of Heart Dise ase(V17.49) Status:Active Family history of Parkinson Disease Status:Active Family history of Absolute G laucoma Status:Active Family history of Uterine Ca ncer(V16.49) Status:Active Family history of Lung Cance r(V16.1) Status:Active Family history of Hypertensi on(V17.49) Status:Active Family history of Glaucoma(V 19.11) Status:Active Family history of Arthritis( V17.7) Status:Active Father Name Dates Details Family history of Heart Dise ase(V17.49) Status:Active Family history of Gastrointe stinal Disorder(V18.59) Status:Active Brother Name Dates Details Family history of Hypertensi on(V17.49) Status:Active Family history of Heart Dise ase(V17.49) Status:Active Family history of Multiple S clerosis Status:Active Unknown Family Member Name Dates Details Family history of Heart Dise ase(V17.49) Comments:Family History Status:Active Mother Name Dates Details Family history of Heart Dise ase(V17.49) Status:Active Family history of Parkinson Disease Status:Active Family history of Absolute G laucoma Status:Active Family history of Uterine Ca ncer(V16.49) Status:Active Family history of Lung Cance r(V16.1) Status:Active Family history of Hypertensi on(V17.49) Status:Active Family history of Glaucoma(V 19.11) Status:Active Family history of Arthritis( V17.7) Status:Active Father Name Dates Details Family history of Heart Dise ase(V17.49) Status:Active Family history of Gastrointe stinal Disorder(V18.59) Status:Active Brother Name Dates Details Family history of Hypertensi on(V17.49) Status:Active Family history of Heart Dise ase(V17.49) Status:Active Family history of Multiple S clerosis Status:Active Unknown Family Member Name Dates Details Multiple Sclerosis: Brother Status:Active Gastrointestinal Disorder: F ather(V18.59) Status:Active Arthritis: Mother(V17.7) Status:Active Glaucoma: Mother(V19.11) Status:Active Heart Disease: Brother(V17.4 9) Status:Active Hypertension: Brother(V17.49 ) Status:Active Hypertension: Mother(V17.49) Status:Active Lung Cancer: Mother(V16.1) Status:Active Uterine Cancer: Mother(V16.4 9) Status:Active Heart Disease: Family Histor y(49) Status:Active Heart Disease: Mother(V17.49 ) Status:Active Parkinson Disease: Mother Status:Active Heart Disease: Father(V17.49 ) Status:Active Absolute Glaucoma: Mother Status:Active Unknown Family Member Name Dates Details Multiple Sclerosis: Brother Status:Active Gastrointestinal Disorder: F ather(V18.59) Status:Active Arthritis: Mother(V17.7) Status:Active Glaucoma: Mother(V19.11) Status:Active Heart Disease: Brother(V17.4 9) Status:Active Hypertension: Brother(V17.49 ) Status:Active Hypertension: Mother(V17.49) Status:Active Lung Cancer: Mother(V16.1) Status:Active Uterine Cancer: Mother(V16.4 9) Status:Active Absolute Glaucoma: Mother Status:Active Heart Disease: Father(V17.49 ) Status:Active Parkinson Disease: Mother Status:Active Heart Disease: Mother(V17.49 ) Status:Active Heart Disease: Family Histor y(7.49) Status:Active Unknown Family Member Name Dates Details Heart Disease: Family Histor y(7.49) Status:Active Heart Disease: Mother(V17.49 ) Status:Active Parkinson Disease: Mother Status:Active Heart Disease: Father(V17.49 ) Status:Active Absolute Glaucoma: Mother Status:Active Uterine Cancer: Mother(V16.4 9) Status:Active Lung Cancer: Mother(V16.1) Status:Active Hypertension: Mother(V17.49) Status:Active Hypertension: Brother(V17.49 ) Status:Active Heart Disease: Brother(V17.4 9) Status:Active Glaucoma: Mother(V19.11) Status:Active Arthritis: Mother(V17.7) Status:Active Gastrointestinal Disorder: F ather(V18.59) Status:Active Multiple Sclerosis: Brother Status:Active Unknown Family Member Name Dates Details Multiple Sclerosis: Brother Status:Active Gastrointestinal Disorder: F ather(V18.59) Status:Active Arthritis: Mother(V17.7) Status:Active Glaucoma: Mother(V19.11) Status:Active Heart Disease: Brother(V17.4 9) Status:Active Hypertension: Brother(V17.49 ) Status:Active Hypertension: Mother(V17.49) Status:Active Lung Cancer: Mother(V16.1) Status:Active Uterine Cancer: Mother(V16.4 9) Status:Active Heart Disease: Father(V17.49 ) Status:Active Parkinson Disease: Mother Status:Active Heart Disease: Mother(V17.49 ) Status:Active Heart Disease: Family Histor y(V17.49) Status:Active Absolute Glaucoma: Mother Status:Active Unknown Family Member Name Dates Details Heart Disease: Family Histor y(V17.49) Status:Active Heart Disease: Mother(V17.49 ) Status:Active Parkinson Disease: Mother Status:Active Heart Disease: Father(V17.49 ) Status:Active Absolute Glaucoma: Mother Status:Active Uterine Cancer: Mother(V16.4 9) Status:Active Lung Cancer: Mother(V16.1) Status:Active Hypertension: Mother(V17.49) Status:Active Hypertension: Brother(V17.49 ) Status:Active Heart Disease: Brother(V17.4 9) Status:Active Glaucoma: Mother(V19.11) Status:Active Arthritis: Mother(V17.7) Status:Active Gastrointestinal Disorder: F ather(V18.59) Status:Active Multiple Sclerosis: Brother Status:Active Unknown Family Member Name Dates Details Heart Disease: Family Histor y(V17.49) Status:Active Heart Disease: Mother(V17.49 ) Status:Active Parkinson Disease: Mother Status:Active Heart Disease: Father(V17.49 ) Status:Active Absolute Glaucoma: Mother Status:Active Uterine Cancer: Mother(V16.4 9) Status:Active Lung Cancer: Mother(V16.1) Status:Active Hypertension: Mother(V17.49) Status:Active Hypertension: Brother(V17.49 ) Status:Active Heart Disease: Brother(V17.4 9) Status:Active Glaucoma: Mother(V19.11) Status:Active Arthritis: Mother(V17.7) Status:Active Gastrointestinal Disorder: F ather(V18.59) Status:Active Multiple Sclerosis: Brother Status:Active Unknown Family Member Name Dates Details Heart Disease: Family Histor y(V17.49) Status:Active Heart Disease: Mother(V17.49 ) Status:Active Parkinson Disease: Mother Status:Active Heart Disease: Father(V17.49 ) Status:Active Absolute Glaucoma: Mother Status:Active Uterine Cancer: Mother(V16.4 9) Status:Active Lung Cancer: Mother(V16.1) Status:Active Hypertension: Mother(V17.49) Status:Active Hypertension: Brother(V17.49 ) Status:Active Heart Disease: Brother(V17.4 9) Status:Active Glaucoma: Mother(V19.11) Status:Active Arthritis: Mother(V17.7) Status:Active Gastrointestinal Disorder: F ather(V1859) Status:Active Multiple Sclerosis: Brother Status:Active Unknown Family Member Name Dates Details Heart Disease: Family Histor y(V17.49) Status:Active Heart Disease: Mother(V17.49 ) Status:Active Parkinson Disease: Mother Status:Active Heart Disease: Father(V17.49 ) Status:Active Absolute Glaucoma: Mother Status:Active Uterine Cancer: Mother(V16.4 9) Status:Active Lung Cancer: Mother(V16.1) Status:Active Hypertension: Mother(V17.49) Status:Active Hypertension: Brother(V17.49 ) Status:Active Heart Disease: Brother(V17.4 9) Status:Active Glaucoma: Mother(V19.11) Status:Active Arthritis: Mother(V17.7) Status:Active Gastrointestinal Disorder: F ather(V18.59) Status:Active Multiple Sclerosis: Brother Status:Active Unknown Family Member Name Dates Details Heart Disease: Family Histor y(V17.49) Status:Active Heart Disease: Mother(V17.49 ) Status:Active Parkinson Disease: Mother Status:Active Heart Disease: Father(V17.49 ) Status:Active Absolute Glaucoma: Mother Status:Active Uterine Cancer: Mother(V16.4 9) Status:Active Lung Cancer: Mother(V16.1) Status:Active Hypertension: Mother(V17.49) Status:Active Hypertension: Brother(V17.49 ) Status:Active Heart Disease: Brother(V17.4 9) Status:Active Glaucoma: Mother(V19.11) Status:Active Arthritis: Mother(V17.7) Status:Active Gastrointestinal Disorder: F ather(V18.59) Status:Active Multiple Sclerosis: Brother Status:Active Unknown Family Member Name Dates Details Heart Disease: Family Histor y() Status:Active Heart Disease: Mother(V17.49 ) Status:Active Parkinson Disease: Mother Status:Active Heart Disease: Father(V17.49 ) Status:Active Absolute Glaucoma: Mother Status:Active Uterine Cancer: Mother(V16.4 9) Status:Active Lung Cancer: Mother(V16.1) Status:Active Hypertension: Mother(V17.49) Status:Active Hypertension: Brother(V17.49 ) Status:Active Heart Disease: Brother(V17.4 9) Status:Active Glaucoma: Mother(V19.11) Status:Active Arthritis: Mother(V17.7) Status:Active Gastrointestinal Disorder: F ather(V18.59) Status:Active Multiple Sclerosis: Brother Status:Active Unknown Family Member Name Dates Details Heart Disease: Family Histor y() Status:Active Heart Disease: Mother(V17.49 ) Status:Active Parkinson Disease: Mother Status:Active Heart Disease: Father(V17.49 ) Status:Active Absolute Glaucoma: Mother Status:Active Uterine Cancer: Mother(V16.4 9) Status:Active Lung Cancer: Mother(V16.1) Status:Active Hypertension: Mother(V17.49) Status:Active Hypertension: Brother(V17.49 ) Status:Active Heart Disease: Brother(V17.4 9) Status:Active Glaucoma: Mother(V19.11) Status:Active Arthritis: Mother(V17.7) Status:Active Gastrointestinal Disorder: F ather(V18.59) Status:Active Multiple Sclerosis: Brother Status:Active Unknown Family Member Name Dates Details Heart Disease: Family Histor y(V17.49) Status:Active Heart Disease: Mother(V17.49 ) Status:Active Parkinson Disease: Mother Status:Active Heart Disease: Father(V17.49 ) Status:Active Absolute Glaucoma: Mother Status:Active Uterine Cancer: Mother(V16.4 9) Status:Active Lung Cancer: Mother(V16.1) Status:Active Hypertension: Mother(V17.49) Status:Active Hypertension: Brother(V17.49 ) Status:Active Heart Disease: Brother(V17.4 9) Status:Active Glaucoma: Mother(V19.11) Status:Active Arthritis: Mother(V17.7) Status:Active Gastrointestinal Disorder: F ather(V18.59) Status:Active Multiple Sclerosis: Brother Status:Active Unknown Family Member Name Dates Details Heart Disease: Family Histor y(V17.49) Status:Active Heart Disease: Mother(V17.49 ) Status:Active Parkinson Disease: Mother Status:Active Heart Disease: Father(V17.49 ) Status:Active Absolute Glaucoma: Mother Status:Active Uterine Cancer: Mother(V16.4 9) Status:Active Lung Cancer: Mother(V16.1) Status:Active Hypertension: Mother(V17.49) Status:Active Hypertension: Brother(V17.49 ) Status:Active Heart Disease: Brother(V17.4 9) Status:Active Glaucoma: Mother(V19.11) Status:Active Arthritis: Mother(V17.7) Status:Active Gastrointestinal Disorder: F ather(V18.59) Status:Active Multiple Sclerosis: Brother Status:Active Advance Directives No Advanced Directives Records FoundNo Advanced Directives Records FoundNo Advanced Directives Records FoundNo Advanced Directives Records FoundNo Advanced Directives Records FoundNo Advanced Directives Records FoundNo Advanced Directives Records FoundNo Advanced Directives Records FoundNo Advanced Directives Records Found Chief Complaint Medicare Wellness ; discuss memory changediscuss memory change, depression and confusion.discuss memory change, depression and confusion.discuss memory change, depression and confusion. Additional Source Comments INFORMATION SOURCE (unrecogn ized section and content) DATE CREATED AUTHOR AUTHOR'S ORGANIZ ATION 06/07/2018 [facility] DATE CREATED AUTHOR AUTHOR'S ORGANIZ ATION 06/07/2018 [facility] DATE CREATED AUTHOR AUTHOR'S ORGANIZ ATION 08/06/2018 [facility] DATE CREATED AUTHOR AUTHOR'S ORGANIZ ATION 04/02/2021 [facility] DATE CREATED AUTHOR AUTHOR'S ORGANIZ ATION 12/21/2021 [facility] DATE CREATED AUTHOR AUTHOR'S ORGANIZ ATION 12/21/2021 [employer] DATE CREATED AUTHOR AUTHOR'S ORGANIZ ATION 04/23/2022 [facility] tem [facility] FOR RECORDS PERTAINING TO PATIENTS WHO ARE OR HAVE BEEN ENROLLED IN A CHEMICAL DEPENDENCY/SUBSTANCEABUSE PROGRAM, SOME INFORMATION MAY BE OMITTED. This clinical summary was aggregated from multiple sources. Caution should be exercised in using it in the provision of clinical care. This summary normalizes information from multiple sources, and as a consequence, information in this document may materially change the coding, format and clinical context of patient data. In addition, data may be omitted in some cases. CLINICAL DECISIONS SHOULD BE BASED ON THE PRIMARY CLINICAL RECORDS. [employer] provides no warranty or guarantee of the accuracy or completeness of information in this document.
[2023-03-07 10:15] LABS: Hematocrit 38.3 % (37-47); Hemoglobin 11.8 g/dL (12.0-15.0); Mean Corp Hgb Conc 30.8 g/dL (32-36); Mean Corpuscular Hgb 29.4 pg (27.0-32.0); Mean Corpuscular Volume 95.5 fL (81-99); Mean Platelet Vol. 11.5 fl (6.2-12.0); Platelet Count 327 K/mm3 (150-450); RBC Distribution Width CV 14.6 % (11.6-14.6); RBC Distribution Width SD 51.2 fl (35.1-43.9); Red Blood Count 4.01 M/mm3 (4.2-5.4); White Blood Count 5.3 K/mm3 (4.4-11.0)
[2023-03-07 10:31] LABS: Anion Gap 6 (5-15); BUN 20 mg/dL (7-18); BUN/Creat Ratio 36.1 RATIO (10-20); Calcium,Total 8.4 mg/dL (8.5-10.1); Chloride 110 mmol/L (98-107); Creatinine, Serum 0.55 mg/dL (0.55-1.02); EST Glomerular Filtration Rate 112 mL/min (>60); Est Glom Filt Rate - Afr Amer 136 mL/min (>60); Glucose 100 mg/dL (74-106); Potassium 3.6 mmol/L (3.5-5.1); Sodium Level 141 mmol/L (136-145)
== END ==
LOC: OLS.ACH 05:00
PROVIDERS: Visit Provider Internal Medicine
DX: R27.9 Unspecified lack of coordination (principal)
CPT/HCPCS: 36415; 80048; 85027

== ENCOUNTER → 2023-05-07 | Outpatient (REF) | payer MEDICARE, SELFPAY ==
--- OUTSIDE RECORDS SUMMARY | 2023-05-07 16:47 | XMS RPT_ITS | CCD ---
Author Name Unknown Address [id number] [place] [address] Organization [facility] Care Team Providers Care Hyperbaric Technologist Name Role Phone Kahlil Chapin Unavailable Unavailable [...] sources) fentaNYL; Translations: [FENTANYL] Drug Allergy 7 [facility] Repository (2 sources) Iodine; Translations: [IODINE] Drug Allergy 7 [facility] Repository (2 sources) Morphine; Translations: [MORPHINE] Drug Allergy 7 [facility] Repository (2 sources) Nitrofurantoin; Translations: [NITROFURANTOIN] Drug Allergy 7 [facility] Repository (20 sources) Penicillins; Translations: [PENICILLINS] Propensity to adverse reactions (disorder) 7 Hives [facility] Repository (2 sources) NITROIMIDAZOLES; Translations: [NITROIMIDAZOLES] Propensity to adverse reactions (disorder) 7 [facility] Repository (18 sources) Ciprofloxacin; Translations: [Cipro TABS] Drug Allergy Rash [facility] Work Phone: (18 sources) metroNIDAZOLE; Translations: [metronidazole] Drug Allergy [facility] Work Phone: (18 sources) Nitrofurantoin; Translations: [Macrodantin CAPS] Drug Allergy [facility] Work Phone: (18 sources) Sulfonamides (Antibiotic); Translations: [Sulfa Drugs] Allergy to drug (finding) Rash [facility] Work Phone: (18 sources) Omnipaque SOLN; Translations: [Omnipaque SOLN] Allergy to drug (finding) Other [facility] Work Phone: Medications Completed/Discontinued Medications Medication Drug [...] height 153.67 cm Jordy Palmer Work Phone: [facility] Work Phone: 12-17-2021 15:42-0400 Body mass index (BMI) [Ratio] 24.2 kg/m2 Jordy Palmer Work Phone: [facility] Work Phone: 12-17-2021 15:42-0400 Body surface area Derived from formula 1.54 m2 Jordy Palmer Work Phone: [facility] Work Phone: 12-17-2021 15:42-0400 Body temperature 97.3 [degF] Jordy Palmer Work Phone: [facility] Work Phone: 12-17-2021 15:42-0400 Body weight 57.15 kg Jordy Palmer Work Phone: [facility] Work Phone: 12-17-2021 15:42-0400 Diastolic blood pressure 80 mm[Hg] Jordy Palmer Work Phone: [facility] Work Phone: 12-17-2021 15:42-0400 Heart rate 60 /min Jordy Palmer Work Phone: [facility] Work Phone: 12-17-2021 15:42-0400 SaO2% (BldA) [Mass fraction] 97 % Jordy Palmer Work Phone: [facility] Work Phone: 12-17-2021 15:42-0400 Systolic blood pressure 138 mm[Hg] Jordy Palmer Work Phone: [facility] Work Phone: 08-17-2021 11:43-0400 Diastolic blood pressure 82 mm[Hg] Jordy Palmer Work Phone: [facility] Work Phone: 08-17-2021 11:43-0400 Systolic blood pressure 135 mm[Hg] Jordy Palmer Work Phone: [facility] Work Phone: 08-17-2021 10:56-0400 Body height 153.67 cm Jordy Palmer Work Phone: [facility] Work Phone: 08-17-2021 10:56-0400 Body mass index (BMI) [Ratio] 23.05 kg/m2 Jordy Palmer Work Phone: [facility] Work Phone: 08-17-2021 10:56-0400 Body surface area Derived from formula 1.51 m2 Jordy Palmer Work Phone: [facility] Work Phone: 08-17-2021 10:56-0400 Body temperature 97.3 [degF] Jordy Palmer Work Phone: [facility] Work Phone: 08-17-2021 10:56-0400 Body weight 54.43 kg Jordy Palmer Work Phone: [facility] Work Phone: 08-17-2021 10:56-0400 Diastolic blood pressure 80 mm[Hg] Jordy Palmer Work Phone: [facility] Work Phone: 08-17-2021 10:56-0400 Heart rate 60 /min Jordy Mendozaomalic Work Phone: [facility] Work Phone: 08-17-2021 10:56-0400 SaO2% (BldA) [Mass fraction] 98 % Jordy Mendozaomalic Work Phone: [facility] Work Phone: 08-17-2021 10:56-0400 Systolic blood pressure 124 mm[Hg] Jordy Mendozaomalic Work Phone: [facility] Work Phone: 07-27-2019 11:32-0400 BMI (Body Mass Index) 27.59 kg/m2 Jordy Mendozaomalic [facility] Work Phone: 07-27-2019 11:32-0400 Body Temperature 98.2 [degF] Jordy Palmer [facility] Work Phone: 07-27-2019 11:32-0400 Body weight 66.23 kg Jordy Mendozaomalic [facility] Work Phone: 07-27-2019 11:32-0400 BP Diastolic 76 mm[Hg] Jordy Mendozaomalic [facility] Work Phone: 07-27-2019 11:32-0400 BP Systolic 148 mm[Hg] Jordy Mendozaomalic [facility] Work Phone: 07-27-2019 11:32-0400 BSA (Body Surface Area) 1.65 m2 Jordy Mendozaomalic [facility] Work Phone: 07-27-2019 11:32-0400 Pulse (Heart Rate) 60 /min Jordy Dunhamanushka [facility] Work Phone: Encounters Encounter Date Encounter Type Care Provider Facility Start: 03-08-2022 End: 03-09-2022 Emergency department patient visit WON REINA [facility] Start: 03-03-2022 End: 03-04-2022 Emergency department patient visit BALBIR MORALES [facility] Start: 03-03-2022 End: 03-05-2022 ambulatory JACKY ROSENBERG [facility] Start: 01-11-2022 Rx Renewal Jordy askew Work Phone: [facility] Work Phone: Start: 12-17-2021 Office outpatient vi sit 25 minutes Jordy Palmer Work Phone: [facility] Work Phone: Start: 12-17-2021 Patient encounter procedure Jordy Palmer Work Phone: [facility] Work Phone: Start: 12-17-[address] Jordy Palmer Facility:[id number] Start: 10-19-2021 Rx Renewal Jordy askew Work Phone: -[facility] Work Phone: Start: 10-05-2021 Chart Update Jordy askew Work Phone: [facility] Work Phone: Start: 10-02-2021 Chart Update Jordy askew Work Phone: [facility] Work Phone: Start: 09-11-2021 Rx Renewal Jordy askew Work Phone: [facility] Work Phone: Start: 08-17-2021 Office outpatient vi sit 25 minutes Jordy Palmer Work Phone: [facility] Work Phone: Start: 08-17-[address] Jordy Palmer Facility:[id number] Start: 05-28-2021 Rx Renewal Jordy Askew Kallie askew Work Phone: [facility] Work Phone: Start: 05-23-2021 Rx Renewal Jordy Askew Kallie askew Work Phone: [facility] Work Phone: Start: 04-06-2021 Rx Renewal Jordy Askew Kallie askew Work Phone: [facility] Work Phone: Start: 02-24-2021 AUDIT Jordy askew Work Phone: [facility] Work Phone: Start: 05-06-2020 Patient encounter procedure Jordy Palmer [facility] Work Phone: Start: 07-27-2019 Patient encounter procedure Jordy Mendozaomalic [facility] Work Phone: Start: 05-03-2019 Patient encounter procedure Jordy Mendozaomalic [facility] Work Phone: Start: 03-26-2019 Patient encounter procedure Jordy Mendozaomalic [facility] Work Phone: Start: 12-15-2018 Patient encounter procedure Jordy Mendozaomalic [facility] Work Phone: Start: 10-17-2018 Patient encounter procedure Jordy Mendozaomalic [facility] Work Phone: Start: 07-31-2018 Patient encounter procedure Jordy Kromalic [facility] Work Phone: Start: 07-17-2018 [facility] Work [facility]: Start: 06-06-2018 End: 06-06-2018 Patient encounter procedure Jordy Palmer Facility:[facility] Start: 02-06-2018 [facility] Work [facility]: Start: 09-21-2016 Ambulatory Kahlil Chapin [facility] Patient encounter status Jordy Askew Shannan Work Phone: [facility] Work Phone: Procedures Date Procedure Procedure Detail [...] Jordy Palmer, Status: Pen, Time: 9:40 AM [facility] Work [facility]: Immunizations Immunization Date Immunization Notes Care Provider Fa cary 08-02-2020 Moderna COVID-19 Vac cine 100 MCG/0.5ML Intramuscular Suspension Jordy Palmer Work Phone: [facility] Work Phone: 07-25-2020 Moderna COVID-19 Vac cine 100 MCG/0.5ML Intramuscular Suspension Jordy Palmer Work Phone: [facility] Work Phone: 07-04-2020 Moderna COVID-19 Vac cine 100 MCG/0.5ML Intramuscular Suspension Jordy Mendozazach Work Phone: [facility] Work Phone: 12-25-2019 Fluad Quadrivalent 0 .5 ML Intramuscular Prefilled Syringe Jordy Mendozazach Work Phone: [facility] Work Phone: 12-15-2018 influenza, injectabl e, quadrivalent, preservative free; Translations: [Fluarix Quadrivalent 0.5 ML Intramuscular Suspension Prefilled Syringe] Jordy Palmer [facility] Work Phone: Payers Date Payer Category Payer Unknown [id number] 1945 Unknown 2019 [id number] 1945 Unknown [id number] 1945 Unknown [id number] Unknown Social History Date Type Detail Facility Retired From Work Retired From Work [facility] Work Phone: NEGATED: Highlighted row - - [facility] Work Phone: Functional Status Date Assessment Result Facility NEGATED: Highlighted row Functional performance Functional status health issues are not documented Disease [facility] Work Phone: Mental Status Date Assessment Result Facility NEGATED: Highlighted row Cognitive function [Interpretation] Cognitive status health issues are not documented Disease [facility] Work Phone: Discharge summary note 03-05-2022 Note [...] placement to SNF for Rehab [facility] improved/stable condition SIGNIFICANT [...] Complexity: follow up within 7-14 calendar days (18780) [] Severe Complexity: follow up within 7 calendar days (61377) FOLLOW UP TESTING, PENDING RESULTS OR REFERRALS AT TRANSITIONAL CARE VISIT: [] Yes [x] No PENDING STUDIES: none DISPOSITION: Skilled Facility FACILITY/HOME CARE AGENCY NAME: [facility] Follow up with No follow-up provider specified. [...] SIGNED: Jacky Rosenberg MD 03/05/2022, 12:43 PM [facility] Clinical Note 03-05-2022 Note Date & Type Note Facility 03-05-2022 Note Hospitalist Progress Note 03/05/2022 Subjective: Admit Date: 03/03/2022 PCP: Jordy Palmer DO Room#: 02/28 Interval History: No overnight issues. Chest pain improved. Patient evaluated by PT/OT plan for placement to [facility] SNF, pending final approval from facility, [...] management consulted -Referral sent and accepted to [facility] [place] insurance waiving auth, will need pt/ot input for acceptance Anticipate discharge lime burner pending approvals -am labs, replace lytes prn -increase activity -DVT prophylaxis: [] Lovenox [] Heparin [] SCDs [x] Encourage ambulation [] Already on Anticoagulation Advance Directive: Full Code Anticipated Discharge Within 12 hrs. Jacky Rosenberg MD Division of Hospitalist Medicine Inpatient Medical Services/[facility] Clinical Note 03-04-2022 Note Date & Type Note Facility 03-04-2022 Note S/W, patient ED bedd ed Referral sent to [facility] via [facility]. I did also call admissions at [facility], they did confirm patient Son has been in contact for an admission to their facility. Therapy Evals are pending. Patient is [place], insurance is waiving auth but will need therapy input for acceptance. Once evals complete I will send to [facility] for review. [facility] Clinical Note 03-04-2022 Note Date & [...] management consulted -Referral sent and accepted to [facility] [place] insurance waiving auth, will need pt/ot input for acceptance Anticipate discharge late afternoon/lime burner pending approvals -am labs, replace lytes prn -increase activity -DVT prophylaxis: [] Lovenox [] Heparin [] SCDs [x] Encourage ambulation [] Already on Anticoagulation Advance Directive: Full Code Anticipated Discharge Within 12 hrs. Jacky Rosenberg MD Division of Hospitalist Medicine Inpatient Medical Services/[facility] Clinical Note 03-04-2022 Note Date & Type Note Facility 03-04-2022 Note [facility] 1945 AGE 76 y.o. YEARS [...] on TueMar 03, 2022 7:51 PM (Active) [place] RES: Redd Mendoza MD, starting on TueMar [...] Musculoskeletal: Patient complai (more content not included)... [facility] Clinical Note 04-17-2020 Note Date & Type Note Facility 04-17-2020 Note Patient Outreach ([place] [facility]) SABINA QUARLES ([id number]) 1945 F Date Time Provider Department 04/17/20 [...] Fully Assessed Order(s):SARS-COVID VACCINE 1ST DOSE APPT [[id number]] Order #: [id number] FUTURE Prescriptions as of 04/17/2020 Sig: ASPIRIN [...] [I65.29] 12/02/2016 Letter Text Encounter Status:Closed by VBOX, PRODUSER on 04/21/20 [facility] History of Present illness Narrative Note Date [...] performed 01/31/2018 and glucose screening performed 01/31/2018. [facility] Work Phone: History of Present illness Narrative Note Date & Type Note Facility History of Present illness Narrative miss .Hard to drive.Not motivated.Went to the bank. [facility] Work Phone: History of Present illness Narrative [...] she does have a counselor at [facility] [employer].She has been very isolated since her is . He had been the social [place] for their friend [employer].Without them she has been very isolated not [...] .Hard to drive.Not motivated.Went to the bank. [facility] Work Phone: History of Present illness Narrative [...] she does have a counselor at [facility] [employer].She has been very isolated since her is . He had been the social [place] for their friend [employer].Without them she has been very isolated not [...] Miss .Hard to drive.Not motivated.Went to the [employer]. [facility] Work Phone: Summary Purpose Family History No [...] DATE CREATED AUTHOR AUTHOR'S ORGANIZ ATION 06/07/2018 [facility] DATE CREATED AUTHOR AUTHOR'S ORGANIZ ATION 08/06/2018 [facility] DATE CREATED AUTHOR AUTHOR'S ORGANIZ ATION 04/02/2021 [facility] DATE CREATED AUTHOR AUTHOR'S ORGANIZ ATION 12/21/2021 [facility] DATE CREATED AUTHOR AUTHOR'S ORGANIZ ATION 12/21/2021 [employer] DATE CREATED AUTHOR AUTHOR'S ORGANIZ ATION 04/23/2022 [facility] tem [facility] FOR RECORDS PERTAINING TO PATIENTS [...] BE BASED ON THE PRIMARY CLINICAL RECORDS. [employer] provides no warranty or guarantee of the accuracy or completeness of information in this document.
[2023-05-07 16:55] LABS: Hematocrit 41.7 % (37-47); Hemoglobin 13.1 g/dL (12.0-15.0); Mean Corp Hgb Conc 31.4 g/dL (32-36); Mean Corpuscular Hgb 29.6 pg (27.0-32.0); Mean Corpuscular Volume 94.1 fL (81-99); Mean Platelet Vol. 11.6 fl (6.2-12.0); Platelet Count 365 K/mm3 (150-450); RBC Distribution Width CV 14.6 % (11.6-14.6); Red Blood Count 4.43 M/mm3 (4.2-5.4); White Blood Count 6.3 K/mm3 (4.4-11.0)
--- OUTSIDE RECORDS SUMMARY | 2023-05-09 03:33 | XMS RPT_ITS | CCD ---
Author Name Unknown Address [address] [place] [address] Organization [facility] Care Team Providers Care Research Scientist Name Role Phone Kahlil Chapin Unavailable Unavailable [...] sources) fentaNYL; Translations: [FENTANYL] Drug Allergy 7 [facility] Repository (2 sources) Iodine; Translations: [IODINE] Drug Allergy 7 [facility] (2 sources) Morphine; Translations: [MORPHINE] Drug Allergy 7 [facility] (2 sources) Nitrofurantoin; Translations: [NITROFURANTOIN] Drug Allergy 7 [facility] (20 sources) Penicillins; Translations: [PENICILLINS] Propensity to adverse reactions (disorder) 7 Hives [facility] Rep[facility] (2 sources) NITROIMIDAZOLES; Translations: [NITROIMIDAZOLES] Propensity to adverse reactions (disorder) 7 [facility] (18 sources) Ciprofloxacin; Translations: [Cipro TABS] Drug Allergy Rash [facility] Work Phone: (18 sources) metroNIDAZOLE; Translations: [metronidazole] Drug Allergy [facility] Work Phone: (18 sources) Nitrofurantoin; Translations: [Macrodantin CAPS] Drug Allergy [facility] Work Phone: (18 sources) Sulfonamides (Antibiotic); Translations: [Sulfa Drugs] Allergy to drug (finding) Rash [facility] Work Phone: (18 sources) Omnipaque SOLN; Translations: [Omnipaque SOLN] Allergy to drug (finding) Other [facility] Work Phone: Medications Completed/Discontinued Medications Medication Drug [...] height 153.67 cm Jordy Palmer Work Phone: [facility] Work Phone: 12-17-2021 15:42-0400 Body mass index (BMI) [Ratio] 24.2 kg/m2 Jordy Palmer Work Phone: [facility] Work Phone: 12-17-2021 15:42-0400 Body surface area Derived from formula 1.54 m2 Jordy Palmer Work Phone: [facility] Work Phone: 12-17-2021 15:42-0400 Body temperature 97.3 [degF] Jordy Palmer Work Phone: [facility] Work Phone: 12-17-2021 15:42-0400 Body weight 57.15 kg Jordy Palmer Work [facility]: [facility] Work Phone: 12-17-2021 15:42-0400 Diastolic blood pressure 80 mm[Hg] Jordy Palmer Work Phone: [facility] Work Phone: 12-17-2021 15:42-0400 Heart rate 60 /min Jordy Palmer Work Phone: [facility] Work Phone: 12-17-2021 15:42-0400 SaO2% (BldA) [Mass fraction] 97 % Jordy Palmer Work Phone: [facility] Work Phone: 12-17-2021 15:42-0400 Systolic blood pressure 138 mm[Hg] Jordy Palmer Work Phone: [facility] Work Phone: 08-17-2021 11:43-0400 Diastolic blood pressure 82 mm[Hg] Jordy Palmer Work Phone: [facility] Work Phone: 08-17-2021 11:43-0400 Systolic blood pressure 135 mm[Hg] Jordy Palmer Work Phone: [facility] Work Phone: 08-17-2021 10:56-0400 Body height 153.67 cm Jordy Palmer Work Phone: [facility] Work Phone: 08-17-2021 10:56-0400 Body mass index (BMI) [Ratio] 23.05 kg/m2 Jordy Palmer Work Phone: [facility] Work Phone: 08-17-2021 10:56-0400 Body surface area Derived from formula 1.51 m2 Jordy Palmer Work Phone: [facility] Work Phone: 08-17-2021 10:56-0400 Body temperature 97.3 [degF] Jordy Palmer Work Phone: [facility] Work Phone: 08-17-2021 10:56-0400 Body weight 54.43 kg Jordy Palmer Work Phone: [facility] Work Phone: 08-17-2021 10:56-0400 Diastolic blood pressure 80 mm[Hg] Jordy Palmer Work Phone: [facility] Work Phone: 08-17-2021 10:56-0400 Heart rate 60 /min Jordy Mendozaomalic Work Phone: [facility] Work Phone: 08-17-2021 10:56-0400 SaO2% (BldA) [Mass fraction] 98 % Jordy Mendozaomalic Work Phone: [facility] Work Phone: 08-17-2021 10:56-0400 Systolic blood pressure 124 mm[Hg] Jordy Mendozaomalic Work Phone: [facility] Work Phone: 07-27-2019 11:32-0400 BMI (Body Mass Index) 27.59 kg/m2 Jordy Mendozaomalic [facility] Work Phone: 07-27-2019 11:32-0400 Body Temperature 98.2 [degF] Jordy Palmer [facility] [facility] Work Phone: 07-27-2019 11:32-0400 Body weight 66.23 kg Jordy Mendozaomalic [facility] [facility] Work Phone: 07-27-2019 11:32-0400 BP Diastolic 76 mm[Hg] Jordy Mendozaomalic [facility] [facility] Work Phone: 07-27-2019 11:32-0400 BP Systolic 148 mm[Hg] Jordy Mendozaomalic [facility] Work Phone: 07-27-2019 11:32-0400 BSA (Body Surface Area) 1.65 m2 Jordy Mendozaomalic [facility] Work Phone: 07-27-2019 11:32-0400 Pulse (Heart Rate) 60 /min Jordy Dunhamanushka [facility] Work Phone: Encounters Encounter Date Encounter Type Care Provider Facility Start: 03-08-2022 End: 03-09-2022 Emergency department patient visit WON REINA [facility] Start: 03-03-2022 End: 03-04-2022 Emergency department patient visit BALBIR MORALES [facility] Start: 03-03-2022 End: 03-05-2022 ambulatory JACKY ROSENBERG [facility] Start: 01-11-2022 Rx Renewal Jordy askew Work Phone: [facility] Work Phone: Start: 12-17-2021 Office outpatient vi sit 25 minutes Jordy Palmer Work Phone: [facility] Work Phone: Start: 12-17-2021 Patient encounter procedure Jordy Palmer Work Phone: [facility] Work Phone: Start: 12-17-[address] Jordy Palmer Facility:[id number] Start: 10-19-2021 Rx Renewal Jordy askew Work Phone: [facility] Work Phone: Start: 10-05-2021 Chart Update Jordy askew Work Phone: [facility] Work Phone: Start: 10-02-2021 Chart Update Jordy askew Work Phone: [facility] Work Phone: Start: 09-11-2021 Rx Renewal Jordy askew Work Phone: [facility] Work Phone: Start: 08-17-2021 Office outpatient vi sit 25 minutes Jordy Palmer Work Phone: [facility] Work Phone: Start: 08-17-[address] Jordy Palmer Facility:[id number] Start: 05-28-2021 Rx Renewal Jordy Askew Kallie askew Work Phone: [facility] Work Phone: Start: 05-23-2021 Rx Renewal Jordy Askew Kallie askew Work Phone: [facility] Work Phone: Start: 04-06-2021 Rx Renewal Jordy Askew Kallie askew Work Phone: [facility] Work Phone: Start: 02-24-2021 AUDIT Jordy askew Work Phone: [facility] Work Phone: Start: 05-06-2020 Patient encounter procedure Jordy Palmer [facility] Work Phone: Start: 07-27-2019 Patient encounter procedure Jordy Mendozaomalic [facility] Work Phone: Start: 05-03-2019 Patient encounter procedure Jordy Mendozaomalic [facility] Work Phone: Start: 03-26-2019 Patient encounter procedure Jordy Mendozaomalic [facility] Work Phone: Start: 12-15-2018 Patient encounter procedure Jordy Mendozaomalic [facility] Work Phone: Start: 10-17-2018 Patient encounter procedure Jordy Mendozaomalic [facility] Work Phone: Start: 07-31-2018 Patient encounter procedure Jordy Kromalic [facility] Work Phone: Start: 07-17-2018 [facility] Work Phone: Start: 06-06-2018 End: 06-06-2018 Patient encounter procedure Jordy Palmer Facility:[facility] Start: 02-06-2018 Patient [facility] Work [facility]: Start: 09-21-2016 Ambulatory Kahlil Chapin [facility] Patient encounter status Jordy Askew Shannan Work Phone: [facility] Work Phone: Procedures Date Procedure Procedure Detail Performing Clinician Appendectomy Jordy Palmer Cholecystectomy Jordy askew History of Foot Surgery Left Jordy Palmer History of Gallbladder Surgery Jordy Palmer History of Partial Colectomy - Sigmoid Jordy Palmer History of Simple Bu nion Exostectomy (Silver Procedure) Jodry Palmer Total abdominal hyst erectomy with bilateral salpingo-oophorectomy Jordy Palmer Plan of Treatment Date Care Activity Detail Author Start: 03-19-2021 FUV, Provider: Jordy Palmer, Status: Pen, Time: 9:40 AM FUV, Provider: Jordy Palmer, Status: Pen, Time: 9:40 AM [facility] Work Phone: Immunizations Immunization Date Immunization Notes Care Provider Fa cary 08-02-2020 Moderna COVID-19 Vac cine 100 MCG/0.5ML Intramuscular Suspension Jordy Palmer Work Phone: [facility] Work Phone: 07-25-2020 Moderna COVID-19 Vac cine 100 MCG/0.5ML Intramuscular Suspension Joryd Palmer Work Phone: [facility] Work Phone: 07-04-2020 Moderna COVID-19 Vac cine 100 MCG/0.5ML Intramuscular Suspension Jordy Mendozazach Work Phone: [facility] Work Phone: 12-25-2019 Fluad Quadrivalent 0 .5 ML Intramuscular Prefilled Syringe Jordy Mendozazach Work Phone: [facility] Work Phone: 12-15-2018 influenza, injectabl e, quadrivalent, preservative free; Translations: [Fluarix Quadrivalent 0.5 ML Intramuscular Suspension Prefilled Syringe] Jordy Palmer [facility] Work Phone: Payers Date Payer Category Payer Unknown [id number] 1945 Unknown [id number] 1945 Unknown [id number] 1945 Unknown [id number] [id number] Unknown Social History Date Type Detail Facility Retired From Work Retired From Work [facility] Work Phone: NEGATED: Highlighted row - - [facility] Work Phone: Functional Status Date Assessment Result Facility NEGATED: Highlighted row Functional performance Functional status health issues are not documented Disease [facility] Work Phone: Mental Status Date Assessment Result Facility NEGATED: Highlighted row Cognitive function [Interpretation] Cognitive status health issues are not documented Disease [facility] Work Phone: Discharge summary note 03-05-2022 Note [...] placement to SNF for Rehab [facility]charge [facility] in improved/stable condition SIGNIFICANT [...] Complexity: follow up within 7-14 calendar days (72172) [] Severe Complexity: follow up within 7 calendar days (84105) FOLLOW UP TESTING, PENDING RESULTS OR REFERRALS AT TRANSITIONAL CARE VISIT: [] Yes [x] No PENDING STUDIES: none DISPOSITION: Skilled Facility FACILITY/HOME CARE AGENCY NAME: [facility] Follow up with No follow-up provider specified. [...] SIGNED: Jacky Rosenberg MD 03/05/2022, 12:43 PM [facility] Clinical Note 03-05-2022 Note Date & Type Note Facility 03-05-2022 Note Hospitalist Progress Note 03/05/2022 Subjective: Admit Date: 03/03/2022 PCP: Jordy Palmer DO Room#: 02/28 Interval History: No overnight issues. Chest pain improved. 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 Jacky Rosenberg MD Division of Hospitalist Medicine Inpatient Medical Services/[facility] Clinical Note 03-04-2022 Note Date & Type Note Facility 03-04-2022 Note S/W, patient ED bedd ed Referral sent to [facility] via [facility]. I did also call admissions at [facility], they did confirm patient Son has been in contact for an admission to their facility. Therapy Evals are pending. Patient is [place] [employer], insurance is waiving auth but will need therapy input for acceptance. Once evals complete I will send to [facility] for review. [facility] Clinical Note 03-04-2022 Note Date & [...] management consulted -Referral sent and accepted to [facility], [place] insurance waiving auth, will need pt/ot input for acceptance Anticipate discharge late afternoon/lawn specialist pending approvals -am labs, replace lytes prn -increase activity -DVT prophylaxis: [] Lovenox [] Heparin [] SCDs [x] Encourage ambulation [] Already on Anticoagulation Advance Directive: Full Code Anticipated Discharge Within 12 hrs. Jacky Rosenberg MD Division of Hospitalist Medicine Inpatient Medical Services/[facility] Clinical Note 03-04-2022 Note Date & Type Note Facility 03-04-2022 Note [facility] 1945 AGE 76 y.o. [...] on TueMar 03, 2022 7:51 PM (Active) Environmental Protection Forester RES: Redd Mendoza MD, starting on TueMar [...] Musculoskeletal: Patient complai (more content not included)... [facility] Clinical Note 04-17-2020 Note Date & Type Note Facility 04-17-2020 Note Patient Outreach ([place] [facility]) SABINA QUARLES ([id number]) 1945 F Date Time Provider Department 04/17/20 [...] Fully Assessed Order(s):SARS-COVID VACCINE 1ST DOSE APPT [[id number]] Order #: [id number] FUTURE Prescriptions as of 04/17/2020 Sig: ASPIRIN [...] [I65.29] 12/02/2016 Letter Text Encounter Status:Closed by [employer], PRODUSER on 04/21/20 [facility] History of Present illness Narrative Note Date [...] performed 01/31/2018 and glucose screening performed 01/31/2018. [facility] Work Phone: History of Present illness Narrative Note Date & Type Note Facility History of Present illness Narrative miss .Hard to drive.Not motivated.Went to the bank. [facility] Work Phone: History of Present illness Narrative [...] she does have a counselor at all [employer].She has been very isolated since her is . He had been the social [place] for their friend [employer].Without them she has been very isolated not [...] .Hard to drive.Not motivated.Went to the bank. [facility] Work Phone: History of Present illness Narrative [...] she does have a counselor at all [employer].She has been very isolated since her is . He had been the social [place] for their friend [employer].Without them she has been very isolated not [...] Miss .Hard to drive.Not motivated.Went to the [employer]. [facility] Work Phone: Summary Purpose Family History No [...] DATE CREATED AUTHOR AUTHOR'S ORGANIZ ATION 06/07/2018 [facility] DATE CREATED AUTHOR AUTHOR'S ORGANIZ ATION 08/06/2018 [facility] DATE CREATED AUTHOR AUTHOR'S ORGANIZ ATION 04/02/2021 [facility] DATE CREATED AUTHOR AUTHOR'S ORGANIZ ATION 12/21/2021 [facility] DATE CREATED AUTHOR AUTHOR'S ORGANIZ ATION 12/21/2021 [facility] DATE CREATED AUTHOR AUTHOR'S ORGANIZ ATION 04/23/2022 [facility] FOR RECORDS PERTAINING TO PATIENTS [...] BE BASED ON THE PRIMARY CLINICAL RECORDS. [employer] provides no warranty or guarantee of the accuracy or completeness of information in this document.
--- OUTSIDE RECORDS SUMMARY | 2023-05-09 10:41 | XMS RPT_ITS | CCD ---
Author Name Unknown Address [address] [place] [address] Organization [facility] Care Team Providers Care Manager It Training Name Role Phone Kahlil Chapin Unavailable Unavailable KromalicJordy Unavailable Unavailable KrJordy serrano Unavailable Unavailable Jordy Palmer Referring Unavailable Jordy Palmer Primary Care Unavailable JORDY PALMER Referring Unavailab le KromalicJordy Unavailable Unavailable Ajith Sy Unavailable Unavaila ble Jordy Palmer Unavailable Unavailable Amado Johnson Unavailable Unavailable Jordy Palmer Unavailable Unavailable Amado Johnson Unavailable Unavailable Jordy Palmer Unavailable Unavailable Unavailable Krzach, Dr. Joryd Becker Referring Unava ilable Kromalic, Dr. Jordy [...] sources) fentaNYL; Translations: [FENTANYL] Drug Allergy 7 [facility] (2 sources) Iodine; Translations: [IODINE] Drug Allergy 7 [facility] (2 sources) Morphine; Translations: [MORPHINE] Drug Allergy 7 [facility] (2 sources) Nitrofurantoin; Translations: [NITROFURANTOIN] Drug Allergy 7 [facility] (20 sources) Penicillins; Translations: [PENICILLINS] Propensity to adverse reactions (disorder) 7 [facility] (2 sources) NITROIMIDAZOLES; Translations: [NITROIMIDAZOLES] Propensity to adverse reactions (disorder) 7 [facility] (18 sources) Ciprofloxacin; Translations: [Cipro TABS] Drug Allergy Rash [facility] Work Phone: (18 sources) metroNIDAZOLE; Translations: [metronidazole] Drug Allergy [facility] Work Phone: (18 sources) Nitrofurantoin; Translations: [Macrodantin CAPS] Drug Allergy [facility] Work Phone: (18 sources) Sulfonamides (Antibiotic); Translations: [Sulfa Drugs] Allergy to drug (finding) Rash [facility] Work Phone: (18 sources) Omnipaque SOLN; Translations: [Omnipaque SOLN] Allergy to drug (finding) Other [facility] Work Phone: Medications Completed/Discontinued Medications Medication Drug [...] height 153.67 cm Jordy Palmer Work Phone: [facility] Work Phone: 12-17-2021 15:42-0400 Body mass index (BMI) [Ratio] 24.2 kg/m2 Jordy Palmer Work Phone: [facility] Work Phone: 12-17-2021 15:42-0400 Body surface area Derived from formula 1.54 m2 Jordy Palmer Work Phone: [facility] Work Phone: 12-17-2021 15:42-0400 Body temperature 97.3 [degF] Jordy Palmer Work Phone: [facility] Work Phone: 12-17-2021 15:42-0400 Body weight 57.15 kg Jordy Palmer Work Phone: [facility] Work Phone: 12-17-2021 15:42-0400 Diastolic blood pressure 80 mm[Hg] Jordy Palmer Work Phone: [facility] Work Phone: 12-17-2021 15:42-0400 Heart rate 60 /min Jordy Palmer Work Phone: [facility] Work Phone: 12-17-2021 15:42-0400 SaO2% (BldA) [Mass fraction] 97 % Jordy Palmer Work Phone: [facility] Work Phone: 12-17-2021 15:42-0400 Systolic blood pressure 138 mm[Hg] Jordy Palmer Work Phone: [facility] Work Phone: 08-17-2021 11:43-0400 Diastolic blood pressure 82 mm[Hg] Jordy Palmer Work Phone: [facility] Work Phone: 08-17-2021 11:43-0400 Systolic blood pressure 135 mm[Hg] Jordy Palmer Work Phone: [facility] Work Phone: 08-17-2021 10:56-0400 Body height 153.67 cm Jordy Palmer Work Phone: [facility] Work Phone: 08-17-2021 10:56-0400 Body mass index (BMI) [Ratio] 23.05 kg/m2 Jordy Palmer Work Phone: [facility] Work Phone: 08-17-2021 10:56-0400 Body surface area Derived from formula 1.51 m2 Jordy Palmer Work Phone: [facility] Work Phone: 08-17-2021 10:56-0400 Body temperature 97.3 [degF] Jordy Palmer Work Phone: [facility] Work Phone: 08-17-2021 10:56-0400 Body weight 54.43 kg Jordy Palmer Work Phone: [facility] Work Phone: 08-17-2021 10:56-0400 Diastolic blood pressure 80 mm[Hg] Jordy Palmer Work Phone: [facility] Work Phone: 08-17-2021 10:56-0400 Heart rate 60 /min Jordy Mendozaomalic Work Phone: [facility] Work Phone: 08-17-2021 10:56-0400 SaO2% (BldA) [Mass fraction] 98 % Jordy Mendozaomalic Work Phone: [facility] Work Phone: 08-17-2021 10:56-0400 Systolic blood pressure 124 mm[Hg] Jordy Mendozaomalic Work Phone: [facility] Work Phone: 07-27-2019 11:32-0400 BMI (Body Mass Index) 27.59 kg/m2 Jordy Mendozaomalic [facility] Work Phone: 07-27-2019 11:32-0400 Body Temperature 98.2 [degF] Jordy Palmer [facility] Work Phone: 07-27-2019 11:32-0400 Body weight 66.23 kg Jordy Mendozaomalic [facility] Work Phone: 07-27-2019 11:32-0400 BP Diastolic 76 mm[Hg] Jordy Mendozaomalic [facility] Work Phone: 07-27-2019 11:32-0400 BP Systolic 148 mm[Hg] Jordy Mendozaomalic [facility] Work Phone: 07-27-2019 11:32-0400 BSA (Body Surface Area) 1.65 m2 Jordy Mendozaomalic [facility] Work Phone: 07-27-2019 11:32-0400 Pulse (Heart Rate) 60 /min Jordy Dunhamanushka [facility] Work Phone: Encounters Encounter Date Encounter Type Care Provider Facility Start: 03-08-2022 End: 03-09-2022 Emergency department patient visit WON REINA [facility] Start: 03-03-2022 End: 03-04-2022 Emergency department patient visit BALBIR MORALES [facility] Start: 03-03-2022 End: 03-05-2022 ambulatory JACKY ROSENBERG [facility] Start: 01-11-2022 Rx Renewal Jordy askew Work Phone: [facility] Work Phone: Start: 12-17-2021 Office outpatient vi sit 25 minutes Jordy Palmer Work Phone: [employer] [place] Work Phone: Start: 12-17-2021 Patient encounter procedure Jordy Palmer Work Phone: [facility] Work Phone: Start: 12-17-[address] Jordy Palmer Facility:[id number] Start: 10-19-2021 Rx Renewal Jordy askew Work Phone: -[facility] Work Phone: Start: 10-05-2021 Chart Update Jordy askew Work Phone: -[facility] Work Phone: Start: 10-02-2021 Chart Update Jordy askew Work Phone: -[facility] Work Phone: Start: 09-11-2021 Rx Renewal Jordy askew Work Phone: [facility] Work Phone: Start: 08-17-2021 Office outpatient vi sit 25 minutes Jordy Palmer Work Phone: [facility] [place] Work Phone: Start: 08-17-[address] Jordy Palmer Facility:[id number] Start: 05-28-2021 Rx Renewal Jordy Askew Kallie askew Work Phone: [facility] Work Phone: Start: 05-23-2021 Rx Renewal Jordy Askew Kallie askew Work Phone: [facility] Work Phone: Start: 04-06-2021 Rx Renewal Jordy Askew Kallie askew Work Phone: [facility] [place] Work Phone: Start: 02-24-2021 AUDIT Jordy askew Work Phone: [facility] Work Phone: Start: 05-06-2020 Patient encounter procedure Jordy Palmer [facility] Work Phone: Start: 07-27-2019 Patient encounter procedure Jordy Mendozaomalic [facility] Work Phone: Start: 05-03-2019 Patient encounter procedure Jordy Mendozaomalic [facility] Work Phone: Start: 03-26-2019 Patient encounter procedure Jordy Mendozaomalic [facility] Work Phone: Start: 12-15-2018 Patient encounter procedure Jordy Mendozaomalic [facility] Work Phone: Start: 10-17-2018 Patient encounter procedure Jordy Mendozaomalic [facility] Work Phone: Start: 07-31-2018 Patient encounter procedure Jordy Kromalic [facility] Work Phone: Start: 07-17-2018 [facility] Start: 06-06-2018 End: 06-06-2018 Patient encounter procedure Jordy Palmer Facility:[facility] Start: 02-06-2018 [facility] Work [facility]: Start: 09-21-2016 Ambulatory Kahlil Chapin [facility] Patient encounter status Jordy Askew Shannan [facility] Work Phone: Procedures Date Procedure Procedure Detail [...] Jordy Palmer, Status: Pen, Time: 9:40 AM [facility] Work Phone: Immunizations Immunization Date Immunization Notes Care Provider Fa cary 08-02-2020 Moderna COVID-19 Vac cine 100 MCG/0.5ML Intramuscular Suspension Jordy Palmer Work Phone: [facility] Work Phone: 07-25-2020 Moderna COVID-19 Vac cine 100 MCG/0.5ML Intramuscular Suspension Jordy Palmer Work Phone: [facility] Work Phone: 07-04-2020 Moderna COVID-19 Vac cine 100 MCG/0.5ML Intramuscular Suspension Jordy Mendozazach Work Phone: [facility] Work Phone: 12-25-2019 Fluad Quadrivalent 0 .5 ML Intramuscular Prefilled Syringe Jordy Mendozazach Work Phone: [facility] Work Phone: 12-15-2018 influenza, injectabl e, quadrivalent, preservative free; Translations: [Fluarix Quadrivalent 0.5 ML Intramuscular Suspension Prefilled Syringe] Jordy Palmer [facility] Work Phone: Payers Date Payer Category Payer Unknown [id number] 1945 Unknown [id number] 1945 Unknown [id number] [id number] 1945 Unknown [id number] [id number] Unknown Social History Date Type Detail Facility Retired From Work Retired From Work [facility] Work Phone: NEGATED: Highlighted row - - [facility] Work Phone: Functional Status Date Assessment Result Facility NEGATED: Highlighted row Functional performance Functional status health issues are not documented Disease [facility] Work Phone: Mental Status Date Assessment Result Facility NEGATED: Highlighted row Cognitive function [Interpretation] Cognitive status health issues are not documented Disease [facility] Work Phone: Discharge summary note 03-05-2022 Note [...] placement to SNF for Rehab Discharge to [facility] for rehab in improved/stable condition SIGNIFICANT [...] Complexity: follow up within 7-14 calendar days (62369) [] Severe Complexity: follow up within 7 calendar days (37447) FOLLOW UP TESTING, PENDING RESULTS OR REFERRALS AT TRANSITIONAL CARE VISIT: [] Yes [x] No PENDING STUDIES: none DISPOSITION: Skilled Facility FACILITY/HOME CARE AGENCY NAME: [facility] Follow up with No follow-up provider specified. [...] SIGNED: Jacky Rosenberg MD 03/05/2022, 12:43 PM [facility] Clinical Note 03-05-2022 Note Date & Type Note Facility 03-05-2022 Note Hospitalist Progress Note 03/05/2022 Subjective: Admit Date: 03/03/2022 PCP: Jordy Palmer DO Room#: 02/28 Interval History: No overnight issues. Chest pain improved. Patient evaluated by PT/OT plan for placement to [facility] SNF, pending final approval from [...] management consulted -Referral sent and accepted to 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 Jacky Rosenberg MD Division of Hospitalist Medicine Inpatient Medical Services/[facility] Clinical Note 03-04-2022 Note Date & Type Note Facility 03-04-2022 Note S/W, patient ED bedd ed Referral sent to [facility] [place] via [facility]. I did also call admissions at [facility], they did confirm patient Son has been in contact for an admission to their facility. Therapy Evals are pending. Patient is [place] [employer], insurance is waiving auth but will need therapy input for acceptance. Once evals complete I will send to [facility] for review. [facility] Clinical Note 03-04-2022 Note Date & Type [...] management consulted -Referral sent and accepted to [facility] [place], [place] insurance waiving auth, will need pt/ot input for acceptance Anticipate discharge late afternoon/medical biller coder pending approvals -am labs, replace lytes prn -increase activity -DVT prophylaxis: [] Lovenox [] Heparin [] SCDs [x] Encourage ambulation [] Already on Anticoagulation Advance Directive: Full Code Anticipated Discharge Within 12 hrs. Jacky Rosenberg MD Division of Hospitalist Medicine Inpatient Medical Services/[facility] Clinical Note 03-04-2022 Note Date & Type Note Facility 03-04-2022 [facility] 1945 AGE 76 y.o. [...] on TueMar 03, 2022 7:51 PM (Active) Manager Medical Device RES: Redd Mendoza MD, starting on TueMar [...] Musculoskeletal: Patient complai (more content not included)... [facility] Clinical Note 04-17-2020 Note Date & Type Note Facility 04-17-2020 Note Patient Outreach ([place] [facility]) SABINA QUARLES ([id number]) 1945 F Date Time Provider Department 04/17/20 [...] Fully Assessed Order(s):SARS-COVID VACCINE 1ST DOSE APPT [[id number]] Order #: [id number] FUTURE Prescriptions as of 04/17/2020 Sig: ASPIRIN [...] [I65.29] 12/02/2016 Letter Text Encounter Status:Closed by Prized, PRODUSER on 04/21/20 [facility] History of Present illness Narrative Note Date [...] performed 01/31/2018 and glucose screening performed 01/31/2018. [facility] Work Phone: History of Present illness Narrative Note Date & Type Note Facility History of Present illness Narrative miss .Hard to drive.Not motivated.Went to the bank. [facility] Work Phone: History of Present illness Narrative [...] she does have a counselor at [facility] [employer].She has been very isolated since her is . He had been the social [place] for their friend [place].Without them she has been very isolated not [...] .Hard to drive.Not motivated.Went to the bank. [employer] [facility] Work Phone: History of Present illness Narrative [...] she does have a counselor at [employer].She has been very isolated since her is . He had been the social [place] for their friend [place].Without them she has been very isolated not [...] Miss .Hard to drive.Not motivated.Went to the Mine. [facility] Work Phone: Summary Purpose Family History [...] DATE CREATED AUTHOR AUTHOR'S ORGANIZ ATION 06/07/2018 [facility] DATE CREATED AUTHOR AUTHOR'S ORGANIZ ATION 08/06/2018 [facility] DATE CREATED AUTHOR AUTHOR'S ORGANIZ ATION 04/02/2021 [facility] DATE CREATED AUTHOR AUTHOR'S ORGANIZ ATION 12/21/2021 [facility] DATE CREATED AUTHOR AUTHOR'S ORGANIZ ATION 12/21/2021 [employer] DATE CREATED AUTHOR AUTHOR'S ORGANIZ ATION 04/23/2022 [facility] FOR RECORDS PERTAINING TO [...] BE BASED ON THE PRIMARY CLINICAL RECORDS. [employer] provides no warranty or guarantee of the accuracy or completeness of information in this document.
== END ==
LOC: OLS.ACH 16:45
PROVIDERS: Visit Provider Internal Medicine
DX: R53.1 Weakness (principal)
CPT/HCPCS: 85027

== ENCOUNTER → 2023-05-09 | Outpatient (REF) | payer MEDICARE, SELFPAY ==
[2023-05-09 10:05] LABS: ALB/GLOB Ratio 0.5 RATIO (0.9-2.4); AST(SGOT) 234 U/L (15-37); Alanine Aminotransfer ALT/SGPT 102 U/L (13-56); Albumin, Serum 2.1 g/dL (3.2-5.0); Alkaline Phosphatase 53 U/L (45-117); Anion Gap 8 (5-15); BUN 16 mg/dL (7-18); BUN/Creat Ratio 29.7 RATIO (10-20); Calcium,Total 8.3 mg/dL (8.5-10.1); Chloride 107 mmol/L (98-107); Creatinine, Serum 0.54 mg/dL (0.55-1.02); EST Glomerular Filtration Rate 116 mL/min (>60); Est Glom Filt Rate - Afr Amer 141 mL/min (>60); Glucose 92 mg/dL (74-106); Potassium 2.9 mmol/L (3.5-5.1); Protein, Total 6.1 g/dL (6.4-8.2); Sodium Level 142 mmol/L (136-145)
== END ==
LOC: OLS.ACH 04:00
PROVIDERS: Referring Provider Internal Medicine; Visit Provider Internal Medicine
DX: R53.1 Weakness (principal)
CPT/HCPCS: 36415; 80053

== ENCOUNTER → 2023-05-16 | Outpatient (REF) | payer MEDICARE, SELFPAY ==
[2023-05-16 08:13] LABS: ALB/GLOB Ratio 0.5 RATIO (0.9-2.4); AST(SGOT) 100 U/L (15-37); Alanine Aminotransfer ALT/SGPT 43 U/L (13-56); Albumin, Serum 2.1 g/dL (3.2-5.0); Alkaline Phosphatase 49 U/L (45-117); Anion Gap 10 (5-15); BUN 11 mg/dL (7-18); BUN/Creat Ratio 33.3 RATIO (10-20); Calcium,Total 8.2 mg/dL (8.5-10.1); Chloride 106 mmol/L (98-107); Creatinine, Serum 0.33 mg/dL (0.55-1.02); EST Glomerular Filtration Rate 204 mL/min (>60); Est Glom Filt Rate - Afr Amer 247 mL/min (>60); Globulin 4.4 g/dL (2.2-4.2); Glucose 75 mg/dL (74-106); Potassium 3.3 mmol/L (3.5-5.1); Protein, Total 6.5 g/dL (6.4-8.2); Sodium Level 140 mmol/L (136-145)
== END ==
LOC: OLS.ACH 04:00
PROVIDERS: Referring Provider Internal Medicine; Visit Provider Internal Medicine
DX: I10 Essential (primary) hypertension (principal); E78.5 Hyperlipidemia, unspecified
CPT/HCPCS: 36415; 80053

== ENCOUNTER → 2024-01-10 | Outpatient (REF) | payer MEDICARE, SELFPAY ==
[2024-01-10 09:25] LABS: Absolute Lymphocyte Count 1.93 X10^3/uL (0.83-4.51); Absolute Neutrophil Count 4.1 X10^3/uL (2.0-7.7); Basophil# 0.04 X10^3/uL; Basophil% 0.6 % (0-1); Eosinophil# 0.39 X10^3/uL; Eosinophils% 5.5 % (0-5); Hematocrit 41.1 % (37-47); Hemoglobin 13.1 g/dL (12.0-15.0); Lymphocyte # 1.93 X10^3/ul (0.83-4.51); Mean Corp Hgb Conc 31.9 g/dL (32-36); Mean Corpuscular Hgb 29.6 pg (27.0-32.0); Mean Corpuscular Volume 92.8 fL (81-99); Mean Platelet Vol. 10.5 fl (6.2-12.0); Monocyte# 0.63 X10^3/uL; Monocyte% 8.8 % (0-10); NRBC Flagged by Analyzer 0 % (0-5); Neutrophil # 4.13 X10^3/uL (2.7-7.7); Neutrophil % 57.8 % (47-70); Platelet Count 241 K/mm3 (150-450); RBC Distribution Width CV 12.8 % (11.6-14.6); RBC Distribution Width SD 43.6 fl (35.1-43.9); Red Blood Count 4.43 M/mm3 (4.2-5.4); White Blood Count 7.1 K/mm3 (4.4-11.0)
[2024-01-10 09:44] LABS: ALB/GLOB Ratio 0.7 RATIO (0.9-2.4); AST(SGOT) 22 U/L (15-37); Alanine Aminotransfer ALT/SGPT 11 U/L (13-56); Alkaline Phosphatase 85 U/L (45-117); Anion Gap 6 (5-15); BUN 20 mg/dL (7-18); Calcium,Total 8.3 mg/dL (8.5-10.1); Chloride 111 mmol/L (98-107); Creatinine, Serum 0.49 mg/dL (0.55-1.02); EST Glomerular Filtration Rate 130 mL/min (>60); Est Glom Filt Rate - Afr Amer 157 mL/min (>60); Globulin 4.2 g/dL (2.2-4.2); Glucose 88 mg/dL (74-106); Potassium 3.6 mmol/L (3.5-5.1); Protein, Total 7.2 g/dL (6.4-8.2); Sodium Level 142 mmol/L (136-145)
== END ==
LOC: OLS.ACH 06:50
PROVIDERS: Visit Provider Internal Medicine
DX: Z79.899 Other long term (current) drug therapy (principal)
CPT/HCPCS: 36415; 80053; 85025